=== PATIENT | male | born 1930 | race Caucasian/White ===

== ENCOUNTER 2017-04-30 11:10 | Inpatient (IN) ==
[2017-04-30] MEDS ORDERED: Ipratropium/Albuterol Neb 3 ML IH ONE (11:23)
[2017-04-30] MEDS ORDERED: methylPREDNISolone 125 MG/2 ML VIAL IVP ONE (11:38)
--- NOTE | 2017-04-30 11:42 | Emergency Department Note ---
Disposition Clinical Impression: Shortness of breath Community acquired pneumonia Qualifiers: Laterality: unspecified laterality Qualified Code(s): J18.9 - Pneumonia, unspecified organism Disposition: Admitted As Inpatient Condition: Fair Referrals: José Grace DO [Primary Care Provider] - Forms: ED Satisfaction Letter Time of Disposition: 13:21 General Adult HPI - General Chief complaint: ED Shortness of Breath/Dyspnea Stated complaint: shortness of breath Time Seen by Provider: 04/30/17 11:12 Source: patient Limitations: no limitations Nursing Notes Reviewed: Yes Vital Signs Reviewed: Yes - History of Present Illness HPI Narrative: Patient is an 86-year-old male that presents to emergency department with shortness of breath. He states that his recently had pneumonia and had to be admitted to the hospital this past week. She states that since then he has started not to feel well and become more short of breath with a cough that is productive. Patient states that 2 days ago he was seen in urgent care and was given a Z-[place], a shot, and given an inhaler for her at home. He states that this helped and he was feeling much better but has progressively gotten worse over the weekend. Patient denies any history of COPD or congestive heart failure. Denies any use of home oxygen or any other inhalers. He states that he has been feeling feverish but has not taken his temperature at home. Pain Scale: 0 - Related Data Home Medications Medication Instructions Recorded Confirmed Calcium Polycarbophil [Fibercon] 625 mg PO DAILY 12/08/14 03/22/17 Carvedilol [Coreg] 12.5 mg PO BID 12/08/14 03/22/17 CloNIDine HCl 0.1 mg PO BID 12/08/14 03/22/17 Furosemide [Lasix] 20 mg PO DAILY 12/08/14 03/22/17 Lutein 20 mg PO DAILY 12/08/14 03/22/17 Potassium Chloride 10 meq PO QID 12/08/14 03/22/17 Quinapril HCl [Accupril] 40 mg PO BID 12/08/14 03/22/17 Simvastatin [Zocor] 20 mg PO HS 12/08/14 03/22/17 Vitamin E 100 unit PO DAILY 12/08/14 03/22/17 Warfarin [Coumadin] 3 mg PO 1800 12/08/14 03/22/17 Cholecalciferol (Vitamin D3) 5,000 unit PO DAILY 02/12/15 03/22/17 [Vitamin D] Ascorbate Calcium [Vitamin C] 500 mg PO DAILY 07/14/15 03/22/17 Calcium Crb,Cit/D3/Min34/Luis 1 tab PO DAILY 07/14/15 03/22/17 [Citracal + Bone Density Tablet] amLODIPine [Norvasc] 5 mg PO DAILY 07/14/15 03/22/17 Acetaminophen [Pain Relief] 500 mg PO AD PRN 03/22/17 03/22/17 Allergies Allergy/AdvReac Type Severity Reaction Status Date / Time Sulfa (Sulfonamide Allergy Rash Verified 03/22/17 11:20 Antibiotics) magnesium AdvReac Unknown See Verified 03/22/17 11:20 Comments All systems ED: reviewed and negative except as stated. Constitutional: Reports: fever Respiratory: Reports: cough, dyspnea, sputum production Gastrointestinal: Denies: abdominal pain Musculoskeletal: Reports: neck pain Neurological: Reports: headache Past Medical History - Past Medical History Medical history: Reports: atrial fibrillation, cancer, hypertension Psychiatric history: Reports: no psych history - Social History Smoking Status: Former smoker Smokeless Tobacco Status: No Alcohol use: Reports: occasionally Drug use: Reports: none Physical Exam - General Limitations: no limitations General appearance: alert, anxious - Head Head exam: atraumatic, normocephalic - Eye Eye exam: Present: normal appearance, EOMI - Neck Neck exam: Present: normal inspection, full ROM, trachea midline - Respiratory Respiratory exam: Present: wheezes (Wheezes bilaterally) - Cardiovascular Cardiovascular exam: Present: regular rate, normal rhythm, normal heart sounds, +S1, +S2 - Abdominal Exam Abdominal exam: Present: soft, Non-Tender, normal bowel sounds, other (Patient has a suprapubic catheter in place) - Neurological Exam Neurological exam: Present: alert, oriented X3 - Psychiatric Psychiatric exam: Present: normal affect, normal mood - Skin Skin exam: Present: warm, dry, intact Course Vital Signs Temperature 98.2 F 04/30/17 11:11 Pulse Rate 72 04/30/17 11:11 Respiratory Rate 22 04/30/17 11:11 Blood Pressure 144/66 04/30/17 11:11 O2 Sat by Pulse Oximetry 97 04/30/17 11:11 Temperature 98.2 F 04/30/17 11:11 Pulse Rate 63 04/30/17 12:55 Respiratory Rate 22 04/30/17 12:55 Blood Pressure 144/62 04/30/17 12:55 O2 Sat by Pulse Oximetry 99 04/30/17 12:55 Oxygen Delivery Oxygen Delivery Nasal Cannula Medical Decision Making - MDM Narrative Medical decision making narrative: Due to the patient presents to the emergency department with shortness of breath we have ordered CBC, BMP, BNP, lactate, blood cultures EKG, chest x-ray. We will also give the patient DuoNeb breathing treatments and steroids. The patient's chest x-ray came back for possible pneumonia. The patient will be started on Zosyn and will need to be admitted to the hospital. This is likely community acquired pneumonia due to the patient despite having pneumonia as well. We were not able to treat the patient with Levaquin due to the patient being on warfarin so we chose to treat the patient was Zosyn. We have talked to the hospitalist and they have accepted the patient to their service. The patient will be admitted to the hospital at this time. - Medical Records Medical records reviewed: Yes I reviewed the patient's medical records. - Lab Data Lab results reviewed: Yes I reviewed the patient's lab results. Result diagrams: 04/30/17 12:25 04/30/17 12:25 Lab Results 04/30/17 04/30/17 04/30/17 Range/Units 12:25 12:25 12:25 WBC 9.9 (4.3-11.1) K/mcL RBC 4.20 (4.19-5.50) M/mcL Hgb 12.0 L (12.9-16.9) g/dL Hct 37.2 L (37.5-50.1) % MCV 88.6 (83.0-100.0) fL MCH 28.6 (28.0-33.3) pg MCHC 32.3 (31.6-35.5) g/dL RDW 15.0 H (11.5-14.5) % Plt Count 241 (140-400) K/mcL MPV 9.8 (9.4-12.4) fL Immature Gran % 0.5 (0-4) % Seg Neutrophils % 80.4 % Lymphocytes % 9.1 % Monocytes % 9.8 % Eosinophils % 0.1 % Basophils % 0.1 % Neutrophils # 7.9 (1.6-8.9) K/mcL Lymphocytes # 0.9 (0.6-4.6) K/mcL Monocytes # 1.0 (0.0-1.3) K/mcL Eosinophils # 0.0 (0.0-0.6) K/mcL Basophils # 0.0 (0.0-0.2) K/mcL Sodium 140 (136-145) mEq/L Potassium 4.6 (3.5-5.1) mEq/L Chloride 108 H (98-107) mEq/L Carbon Dioxide 26 (23-29) mEq/L BUN 38 H (8-23) mg/dL Creatinine 1.16 (0.70-1.30) mg/dL Est GFR ( Amer) > 60 (> 60) Est GFR (Non-Af Amer) 59 L (> 60) BUN/Creatinine Ratio 33 H (6-26) Glucose 113 H (70-105) mg/dL Calculated Osmolality 300 (280-300) Lactic Acid 0.6 (0.5-2.2) mmol/L Calcium 9.0 (8.6-10.3) mg/dL Troponin I (< 0.04) ng/mL B-Natriuretic Peptide (Less than 100) pg/mL 04/30/17 04/30/17 Range/Units 12:25 12:25 WBC (4.3-11.1) K/mcL RBC (4.19-5.50) M/mcL Hgb (12.9-16.9) g/dL Hct (37.5-50.1) % MCV (83.0-100.0) fL MCH (28.0-33.3) pg MCHC (31.6-35.5) g/dL RDW (11.5-14.5) % Plt Count (140-400) K/mcL MPV (9.4-12.4) fL Immature Gran % (0-4) % Seg Neutrophils % % Lymphocytes % % Monocytes % % Eosinophils % % Basophils % % Neutrophils # (1.6-8.9) K/mcL Lymphocytes # (0.6-4.6) K/mcL Monocytes # (0.0-1.3) K/mcL Eosinophils # (0.0-0.6) K/mcL Basophils # (0.0-0.2) K/mcL Sodium (136-145) mEq/L Potassium (3.5-5.1) mEq/L Chloride (98-107) mEq/L Carbon Dioxide (23-29) mEq/L BUN (8-23) mg/dL Creatinine (0.70-1.30) mg/dL Est GFR ( Amer) (> 60) Est GFR (Non-Af Amer) (> 60) BUN/Creatinine Ratio (6-26) Glucose (70-105) mg/dL Calculated Osmolality (280-300) Lactic Acid (0.5-2.2) mmol/L Calcium (8.6-10.3) mg/dL Troponin I < 0.03 (< 0.04) ng/mL B-Natriuretic Peptide 317 H (Less than 100) pg/mL - Radiology Data Radiology results reviewed: Yes I reviewed the patient's radiology results. Chest X-Ray 04/30/17 11:26 IMPRESSION: 1. Mild right basilar airspace disease, atelectasis and/or infiltrate. Follow-up recommended to document resolution. 2. Relatively stable elevation of the right hemidiaphragm. 3. Mild left basilar atelectasis. D/ / Adriel Crum MD / Adriel Crum MD Interpreting Provider: Adriel Crum MD - EKG Data EKG #1 EKG attestation: Yes I reviewed and interpreted this EKG. EKG results narrative: EKG showed a ventricular paced rhythm at 69 bpm, QRS duration of 192, QTC of 465. This is compared to previous EKG on 03/05/09
[2017-04-30 12:47] LABS: BUN/Creatinine Ratio 33 (6-26); Blood Urea Nitrogen 38 mg/dL (8-23); Carbon Dioxide 26 mEq/L (23-29); Chloride 108 mEq/L (98-107); Glucose 113 mg/dL (70-105); Osmolality,Calculated 300 (280-300); Potassium 4.6 mEq/L (3.5-5.1); Sodium 140 mEq/L (136-145); eGFR For African Americans > 60 (> 60); eGFR For Non-African Americans 59 (> 60)
[2017-04-30 12:53] LABS: Basophils % 0.1 %; Eosinophils % 0.1 %; Hematocrit 37.2 % (37.5-50.1); Immature Granulocytes % 0.5 % (0-4); Lymphocytes # 0.9 K/mcL (0.6-4.6); Lymphocytes % 9.1 %; Mean Corpuscular HGB Conc 32.3 g/dL (31.6-35.5); Mean Corpuscular Hemoglobin 28.6 pg (28.0-33.3); Mean Corpuscular Volume 88.6 fL (83.0-100.0); Mean Platelet Volume 9.8 fL (9.4-12.4); Monocytes % 9.8 %; Neutrophils # 7.9 K/mcL (1.6-8.9); Platelet Count 241 K/mcL (140-400); Segmented Neutrophils % 80.4 %
[2017-04-30] MEDS ORDERED: Piperacillin/Tazobactam 3.375 GM in Water for inj. (sterile) 20 ML 20 ML IVP ONE (13:15)
--- NOTE | 2017-04-30 13:30 | Emergency Department Note ---
START Narrative - START START: I examined this patient and my medical decision-making was reviewed with the Resident Physician. I agree with the documented findings, disposition and treatment plan as described except to the extent set forth below. 86-year-old male presented with a right-sided pneumonia. Positive sick contacts at home with his . We will admit for Community acquired pneumonia. Start him on Zosyn. He has failed outpatient Zithromax and he's on Warfarin for A fib so will avoid levaquin vss pulm tx's steroids given blood cultures
[2017-04-30] MEDS ORDERED: Albuterol 2.5 MG/3 ML NEBULIZER IH ONE (13:44)
[2017-04-30 13:48] LABS: INR 4.3
[2017-04-30 13:51] LABS: Prothrombin Time 47.9 Seconds (9.4-12.1)
[2017-04-30] MEDS ORDERED: Acetaminophen 325 MG TABLET PO PRN (15:22)
[2017-04-30] MEDS ORDERED: Ondansetron 4 MG/2 ML VIAL IVP PRN (15:22)
[2017-04-30] MEDS ORDERED: Naloxone 0.4 MG/ML INJ IVP PRN (15:22)
[2017-04-30] MEDS ORDERED: *HR* HYDROcodone/Acet 5/325 mg TABLET PO PRN (15:22)
[2017-04-30] MEDS ORDERED: Benzonatate 100 MG CAPSULE PO PRN (15:38)
--- NOTE | 2017-04-30 16:04 | Internal Med History&Physical ---
<John Olvera - Last Filed: 04/30/17 17:04> Date of Encounter: 04/30/17 Time of Encounter: 14:00 Assessment and Plan (1) Pneumonia Status: Acute Acute pneumonia complicated by acute exacerbation of CHF. Pt. reports was recently hospitalized and discharged with pneumonia dx. 1-View CXR today shows Mild right basilar airspace disease, atelectasis, or infiltrate. F/u recommended to document resolution. Relatively stable elevation of right hemidiaphragm. Mild left basilar atelectasis. Pt. reports being dx at Urgent Care on Monday w/bronchitis. WBC is 9.9 on admission and pt. does not currently meet sepsis criteria. Initial lactic acid 0.6. Pt. given IVPB Zosyn in ED. Will continue IVPB Zosyn 3.375 gm Q8 and add vancomycin w/pharmacy dosing for infection coverage. Blood cultures x 2. Sputum culture. Will adjust abx coverage based on culture results. Will use IV fluids judiciously if necessary d /t pts. current CHF exacerbation. Monitor pt. and f/u labs. Pt. discussed w/Dr. Jacinto who is in agreement w/plan of care. Pt. is at high risk for further morbidity, respiratory distress and infection based on current pneumonia, current exacerbation of CHF, immunocompromised status, sx, hx, and risk factors. Inpatient. Qualifiers: Pneumonia type: due to unspecified organism Laterality: right Lung location: lower lobe of lung Qualified Code(s): J18.1 - Lobar pneumonia, unspecified organism (2) Acute exacerbation of CHF (congestive heart failure) Status: Acute Acute exacerbation of CHF complicated by current pneumonia dx. BNP 317 on admission. Pt. reports swelling in legs and feet over the past week. Bilateral LEs mildly edematous on exam w/increase in abdominal girth and weight over past week according to pt. Echocardiogram ordered. Pt. takes PO lasix 40 mg daily as well as Accupril. Will hold PO lasix and administer IVP lasix 40 mg BID. Monitor I&O and daily weight. Daily fluid restriction of 1.5L. Continuous cardiac telemetry. Supplemental O2 w/titration and SpO2 monitoring. DuoNebs Q6 scheduled. Qualifiers: Congestive heart failure type: unspecified congestive heart failure type Qualified Code(s): I50.9 - Heart failure, unspecified (3) Shortness of breath Status: Acute Acute SOB/dyspnea d/t current pneumonia complicated by acute exacerbation of CHF. Supplemental O2 w/titration and SpO2 monitoring. DuoNebs Q6 scheduled. Tessalon 100 mg TID for cough. Falls/safety precautions. IVP lasix 40 mg BID. Monitor I&O and daily weight. Daily fluid restriction of 1.5L. (4) Bilateral leg weakness Status: Acute Acute bilateral leg weakness for the past several weeks. Pt. reports difficulty w/ambulation but denies any falls. Falls/safety precautions. SW consult to assess for post-discharge needs. PT/OT consults to assess for ambulation strength, stability, and safety. (5) Atrial fibrillation Status: Chronic Hx of chronic atrial fibrillation. Pt. is currently anti-coagulated w/Coumadin. Will continue Coumadin w/pharmacy dosing. Continuous cardiac telemetry. Qualifiers: Atrial fibrillation type: chronic Qualified Code(s): I48.2 - Chronic atrial fibrillation (6) HTN (hypertension) Status: Chronic Hx of chronic HTN. Monitor pt. and VS. Continue pts. Norvasc, Coreg, and Accupril. Qualifiers: Hypertension type: essential hypertension Qualified Code(s): I10 - Essential (primary) hypertension (7) HLD (hyperlipidemia) Status: Chronic Hx of chronic HLD. Lipid panel in a.m. labs. Continue pts. Zocor. Qualifiers: Hyperlipidemia type: pure hypercholesterolemia Qualified Code(s): E78.00 - Pure hypercholesterolemia, unspecified; E78.0 - Pure hypercholesterolemia (8) Anemia Status: Chronic Hx of chronic anemia. Pts. Hgb is 12.0 and Hgb is 37.2 on admission which is at or above pts. recent baseline. Monitor pt. for signs of bleeding. H/H in a.m. labs. 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 Pt. states 75 seeds were implanted in 2001 w/ radiation tx. Pt. is followed by Dr. Krishnan and his next appt. is in 2017. (10) DVT prophylaxis Status: Acute Anti-embolic stockings on LEs for DVT prophylaxis d/t current anemia of unknown origin. Internal Medicine - H&P: HPI Chief complaint: SOB/Dyspnea Admitted From: Emergency Dept Plans for Post Hospital Care: Home History of present illness: Mr. Hodgson is a 86 year old male with medical hx of atrial fibrillation, prostate cancer, and HTN presents from the ED with chief complaint of SOB/ dyspnea for the past several days that became worse at 3:30 p.m. yesterday. Pt. reports he could not lay down to sleep because he would become extremely SOB. He also reports being seen at Urgent Care on Monday and being diagnosed with acute bronchitis. Patient also reports cough with sputum production that is yellow in color. She reports history of prostate cancer diagnosed in 2001 with implantation of 75 seeds and 23 radiation treatments. Patient reports mostly cancer recurred in 2013. He currently sees Dr. Krishnan again in June 2017. Patient reports was recently hospitalized with pneumonia. Patient also reports bilateral leg weakness but denies nausea, vomiting, fever, chills, headache, changes in vision, unusual bleeding, chest pain, palpitations, abdominal pain, diarrhea, constipation, numbness, tingling, lightheadedness, dizziness, pre-syncope, or syncope. Past Med Surg Social Fam HX - Past Medical History Source: patient, old records reviewed Medical history: atrial fibrillation, cancer (Prostate cancer in 2001 and 2013) , hypertension Psychiatric history: no psych history - Social History Smoking Status: Former smoker Packs per day: 1 PPD for 20 years - Reports quitting 40 years ago Smokeless Tobacco Status: No Alcohol use: occasionally Drug use: none Current living situation: Home, With Family Activity Level: Independent ambulation Recent Out of Country Travel Within the Last 8 Weeks: No Exposure or Possible Exposure to Illness During Travel: No - Family History Mother Race: Family Member Ethnicity: Non- Living Status: Age at : 79 Cause of : Unknown Hx Family Neurologic Disorders: Yes (Alzheimer's disease) Father Race: Family Member Ethnicity: Non- Living Status: Age at : 69 Cause of : [place] Hx Family Cardiac Disorders: Yes ([place], Afib, HTN, HLD) Brother Race: Family Member Ethnicity: Non- Living Status: Still Living Hx Family HEENT Disorders: Yes (Macular degeneration) Grandfather Race: Family Member Ethnicity: Non- Living Status: Cause of : [place] Hx Family Cardiac Disorders: Yes (GA) Internal Medicine - H&P: Meds Calcium Polycarbophil [Fibercon] 625 mg PO DAILY 12/08/14 [History] Carvedilol [Coreg] 12.5 mg PO BID 12/08/14 [History] Furosemide [Lasix] 20 mg PO DAILY 12/08/14 [History] Lutein 20 mg PO DAILY 12/08/14 [History] Potassium Chloride 10 meq PO QID 12/08/14 [History] Quinapril HCl [Accupril] 40 mg PO BID 12/08/14 [History] Simvastatin [Zocor] 20 mg PO HS 12/08/14 [History] Vitamin E 100 unit PO DAILY 12/08/14 [History] Warfarin [Coumadin] 3 mg PO [id number] 12/08/14 [History] Cholecalciferol (Vitamin D3) [Vitamin D3] 5,000 unit PO DAILY 02/12/15 [History] Ascorbate Calcium [Vitamin C] 500 mg PO DAILY 07/14/15 [History] Calcium Crb,Cit/D3/Min34/Luis [Citracal + Bone Density Tablet] 1 tab PO DAILY 07/14/15 [History] amLODIPine [Norvasc] 5 mg PO BID 07/14/15 [History] Acetaminophen [Pain Relief] 500 mg PO BID PRN 03/22/17 [History] Warfarin [Coumadin] 1.5 mg PO SUTH 04/30/17 [History] levoFLOXacin [Levaquin] 750 mg PO DAILY #5 tablet 05/04/17 [Rx] 3 Allergy/AdvReac Type Severity Reaction Status Date / Time Sulfa (Sulfonamide Allergy Rash Verified 03/22/17 11:20 Antibiotics) magnesium AdvReac Unknown See Verified 03/22/17 11:20 Comments All Systems PM: A 10-system review of systems was performed and is negative for pertinent findings except as documented above in the HPI. - Constitutional Constitutional: weakness (Bilateral legs), no chills, no fever(s), no night sweats - EENT Eyes: no change in vision, no discharge, no pain, no photophobia Ears: no ear discharge, no ear pain, no tinnitus Nose, mouth and throat: no dysphagia, no nasal discharge, no neck pain, no sore throat - Breasts Breasts: as per HPI - Cardiovascular Cardiovascular ROS IM: dyspnea, dyspnea on exertion, edema (Patient reports edema in legs and feet within past week), irregular heart rhythm (Atrial fibrillation), orthopnea, no chest pain, no diaphoresis, no lightheadedness, no palpitations, no syncope - Respiratory Respiratory: as per HPI, cough, dyspnea, dyspnea on exertion, wheezing, change in phlegm color (Yellow) - Gastrointestinal Gastrointestinal: no abdominal pain, no diarrhea, no hematemesis, no hematochezia, no melena, no nausea, no vomiting - Genitourinary Genitourinary ROS male: as per HPI - Musculoskeletal Musculoskeletal ROS IM: no numbness, no tingling - Integumentary Integumentary IM: no rash, no unusual bruising - Neurological Neurological ROS: no confusion, no convulsions, no focal weakness, no numbness, no tingling, no tremor(s) - Psychiatric Psychiatric: as per HPI - Endocrine Endocrine IM: as per HPI - Hematologic/Lymphatic Hematologic/Lymphatic: no easy bruising - Allergic/Immunologic Allergic/Immunologic: as per HPI - Constitutional Vitals: Temp Pulse Resp BP Pulse Ox 98.1 F 67 17 130/56 93 04/30/17 14:32 04/30/17 14:32 04/30/17 14:32 04/30/17 14:32 04/30/17 14:32 General appearance: Present: cooperative, mild distress (Respiratory), A&O X 3, pleasant, obese, answers questions appropriately - Head Head exam: Present: atraumatic, normal inspection, normocephalic - Eye Eye exam: Present: PERRL, conjuntiva pink, sclera anicteric Pupils: Present: PERRL - ENT ENT exam: Present: normal exam, normal external ear exam - Neck Neck exam general surgery: Present: normal inspection, supple, trachea midline. Absent: lymphadenopathy - Respiratory Respiratory exam: Present: accessory muscle use, wheezes (Bilateral inspiratory and expiratory wheezes) - Cardiovascular Cardiovascular exam: Present: irregular rhythm (Atrial fibrillation) - GI/Abdominal GI/Abdominal exam: Present: normal bowel sounds, soft, no peritoneal signs. Absent: distended, tenderness - Rectal Rectal exam: Present: deferred - Additional comments: exam deferred. - Extremities Exam Extremities exam: Present: pedal edema, warm, radial pulses palpable and symmetrical. Absent: calf tenderness, cyanotic - Back Exam Back exam: Present: normal inspection - Neurological Exam Neurological exam: Present: CN II-XII intact, oriented X3, no focal deficits. Absent: pronater drift, facial droop, speech deficit - Psychiatric Psychiatric exam: Present: normal affect, normal mood - Skin Skin exam: Present: dry, intact Internal Med - H&P Results - Labs CBC & Chem 7: 04/30/17 12:25 04/30/17 12:25 - EKG Data Prior EKG available for review: yes EKG comments: 04/30/17 16:21 EKG dated 03/05/09 she was age fibrillation with PVCs or aberrant ventricular conduction, left axis deviation, IV conduction defect, extensive infarct - age undetermined. EKG dated 04/30/17 shows electronic ventricular pacemaker, abnormal rhythm ECG. - Diagnostic Studies Chest x-ray Additional comments: Impressions Chest X-Ray 04/30/17 11:26 IMPRESSION: 1. Mild right basilar airspace disease, atelectasis and/or infiltrate. Follow-up recommended to document resolution. 2. Relatively stable elevation of the right hemidiaphragm. 3. Mild left basilar atelectasis. D/ / Adriel Crum MD / Adriel Crum MD Interpreting Provider: Adriel Crum MD <Ashley Jacinto Minna - Last Filed: 06/02/17 09:43> Date of Encounter: 06/02/17 Internal Medicine - H&P: HPI History of present illness: Mr. Hodgson is a 86 year old male All Systems PM: A 10-system review of systems was performed and is negative for pertinent findings except as documented above in the HPI. - Constitutional Vitals: Temp Pulse Resp BP Pulse Ox 98.7 F 65 16 131/72 95 05/04/17 11:23 05/04/17 11:23 05/04/17 11:23 05/04/17 11:23 05/04/17 11:23 Internal Med - H&P Results - Labs CBC & Chem 7: 05/04/17 05:22 05/04/17 05:22 - Impressions ITS Impressions Echocardiogram 12/25/17 08:30 Impressions: LVEF 60-65%. Severely dilated left atrium. Severely dilated right atrium. Moderately dilated right ventricle with normal function Moderate pulmonary hypertension. PFO is present Indeterminate diastolic function. Left Ventricular Wall Motion: Rest Echo Findings All wall segments showed normal motion. Findings: Study Quality * Technically adequate exam. Aorta * Normally sized aortic root. Pericardium * The pericardium appears normal. Left Atrium * Severely dilated left atrium. Mitral Valve * No mitral stenosis. * Mildly calcified mitral valve leaflets. * Trace mitral regurgitation. Aortic Valve * Normal aortic valve structure. * No aortic stenosis. * Mild aortic regurgitation. Device lead * A device lead was visualized in the right atrium and right ventricle. Right Atrium * Severely dilated right atrium. Pulmonic Valve * No pulmonic regurgitation. * No pulmonic stenosis. * Pulmonic valve is not well visualized. Left Ventricle * LVEF 60-65%. * Indeterminate diastolic function. Right Ventricle * Moderately dilated right ventricle with normal function ECG Findings * Atrial fibrillation. Tricuspid Valve * Estimated RVSP is 44 mmHg. * No tricuspid stenosis. * Mild tricuspid regurgitation. * Moderate pulmonary hypertension. Interatrial Septum * PFO is present IVC * The IVC is dilated. * < 50% respiratory change. - Attending Attestation I personally and independently interviewed and examined the patient with INSPECTOR [employer], and I reviewed the patient's medical record with her. I am in agreement with the assessment and proposed treatment plan. I discussed my findings and recommendation with the patient and answer all questions. The patient's medical records were edited to accurately reflect this encounter.
[2017-04-30] MEDS: Vancomycin 1,250 MG in D5% in Water 250 ML IVPB SCH (16:54)
[2017-04-30] MEDS: Piperacillin/Tazobactam 3.375 GM/200 ML BAG IVPB SCH (16:55)
[2017-04-30] MEDS: Ipratropium/Albuterol Neb 3 ML IH SCH ×2 (17:50→22:29)
[2017-04-30] MEDS ORDERED: Warfarin perPT PO PRN (18:00)
[2017-04-30 18:49] LABS: Adenovirus Not Detected (Not Detect); Bordetella Pertussis Not Detected (Not Detect); Chlamydophila pneumoniae Not Detected (Not Detect); Coronavirus 229E Not Detected (Not Detect); Coronavirus HKU1 Not Detected (Not Detect); Coronavirus NL63 Not Detected (Not Detect); Coronavirus OC43 Not Detected (Not Detect); Human Metapneumovirus Not Detected (Not Detect); Human Rhinovirus/Enterovirus Not Detected (Not Detect); Influenza A Subtype 2009 H1 Not Detected (Not Detect); Influenza A Untypeable Not Detected (Not Detect); Influenza B Not Detected (Not Detect); Mycoplasma pneumoniae Not Detected (Not Detect); Parainfluenza Virus 1 Not Detected (Not Detect); Parainfluenza Virus 2 Not Detected (Not Detect); Parainfluenza Virus 3 Not Detected (Not Detect); Parainfluenza Virus 4 Not Detected (Not Detect); Respiratory Syncytial Virus ***DETECTED*** (Not Detect)
[2017-04-30] MEDS: amLODIPine 5 MG TABLET PO SCH (20:02)
[2017-04-30] MEDS: Lisinopril 20 MG TABLET PO SCH (20:07)
[2017-04-30] MEDS: Furosemide 40 MG/4 ML VIAL IVP SCH (20:08)
[2017-05-01] MEDS: Piperacillin/Tazobactam 3.375 GM/200 ML BAG IVPB SCH ×3 (01:36→18:10)
[2017-05-01] MEDS: Ipratropium/Albuterol Neb 3 ML IH SCH ×4 (03:57→22:52)
[2017-05-01 03:59] LABS: Basophils % 0.2 %; Hematocrit 33.9 % (37.5-50.1); Hemoglobin 11.1 g/dL (12.9-16.9); Immature Granulocytes % 0.5 % (0-4); Lymphocytes # 0.4 K/mcL (0.6-4.6); Lymphocytes % 6.5 %; Mean Corpuscular HGB Conc 32.7 g/dL (31.6-35.5); Mean Corpuscular Hemoglobin 28.2 pg (28.0-33.3); Mean Corpuscular Volume 86.3 fL (83.0-100.0); Mean Platelet Volume 10.1 fL (9.4-12.4); Monocytes # 0.2 K/mcL (0.0-1.3); Monocytes % 2.8 %; Neutrophils # 5.1 K/mcL (1.6-8.9); Platelet Count 218 K/mcL (140-400); Red Blood Count 3.93 M/mcL (4.19-5.50); Red Cell Distribution Width 14.8 % (11.5-14.5)
[2017-05-01 04:04] LABS: Hemoglobin A1C 5.4 %
[2017-05-01 04:05] LABS: INR 5.1; Prothrombin Time 56.5 Seconds (9.4-12.1)
[2017-05-01 04:20] LABS: Albumin 3.9 g/dL (3.5-5.7); Albumin/Globulin Ratio 1.5 (1.1-2.2); Bilirubin,Total 0.5 mg/dL (0.3-1.0); Calcium 8.5 mg/dL (8.6-10.3); Globulin 2.6 g/dL (2.4-3.5); Magnesium 2.1 mg/dL (1.6-2.6); Potassium 3.6 mEq/L (3.5-5.1); Total Protein 6.5 g/dL (6.4-8.9)
[2017-05-01] MEDS ORDERED: Nitroglycerin 0.4 MG TAB.SUBL SL PRN (05:30)
[2017-05-01] MEDS: (Vitamin E [Vitamin E] 100 UNIT) PO SCH (08:50)
[2017-05-01] MEDS: (Lutein [Lutein] 20 MG) PO SCH (08:50)
[2017-05-01] MEDS: Furosemide 40 MG/4 ML VIAL IVP SCH ×2 (09:26→20:02)
[2017-05-01] MEDS: Cholecalciferol (D-3) 1,000 UNIT TABLET PO SCH (09:27)
[2017-05-01] MEDS: Lisinopril 20 MG TABLET PO SCH ×2 (09:27→20:04)
[2017-05-01] MEDS: amLODIPine 5 MG TABLET PO SCH ×2 (09:28→20:05)
[2017-05-01] MEDS: Ascorbic Acid 500 MG TABLET PO SCH (09:28)
[2017-05-01] MEDS: Vancomycin 1,250 MG in D5% in Water 250 ML IVPB SCH (15:41)
--- NOTE | 2017-05-01 16:01 | Internal Med Progress Note ---
Date of Encounter: 05/01/17 Time of Encounter: 16:00 - Assessment and plan (1) Pneumonia Current Visit: No Status: Acute Assessment and plan: 86/male Was evaluated in the urgent care and was diagnosed as a bronchitis Admitted with pneumonia and was started on vancomycin along with Zosyn. Today is a day 2 of antibiotics. Blood culture negative so far. Sputum culture was discarded due to the inappropriate sample. Plan: We will continue vancomycin/Zosyn for next 1 day. If tomorrow blood culture negative then discontinue vancomycin. May switch to antibiotics by by mouth route in next 1-2 days Qualifiers: Pneumonia type: due to unspecified organism Laterality: right Lung location: lower lobe of lung Qualified Code(s): J18.1 - Lobar pneumonia, unspecified organism (2) Subtherapeutic anticoagulation Current Visit: Yes Status: Acute Assessment and plan: Presently INR is 5.6. Indication for anticoagulation: Atrial fibrillation. Plan: We will hold the Coumadin for now. We will monitor for signs of bleeding. (3) Prostate cancer metastatic to bone Current Visit: No Status: Chronic Assessment and plan: Patient has a metastatic prostate cancer to the bone. At this point there is no bone pain or signs of hypercalcemia (4) Atrial fibrillation Current Visit: No Status: Chronic Assessment and plan: Chronic atrial fibrillation/presently not in rapid ventricular rate. Qualifiers: Atrial fibrillation type: chronic Qualified Code(s): I48.2 - Chronic atrial fibrillation (5) HTN (hypertension) Current Visit: No Status: Chronic Assessment and plan: The patient is within acceptable range Qualifiers: Hypertension type: essential hypertension Qualified Code(s): I10 - Essential (primary) hypertension (6) HLD (hyperlipidemia) Current Visit: No Status: Chronic Assessment and plan: Stable Qualifiers: Hyperlipidemia type: pure hypercholesterolemia Qualified Code(s): E78.00 - Pure hypercholesterolemia, unspecified; E78.0 - Pure hypercholesterolemia (7) DVT prophylaxis Current Visit: No Status: Acute Assessment and plan: INR is 5.6 Coumadin on hold - Subjective Interval history: Patient seen and examined. Chart reviewed. Patient is comfortably lying in the bed. Patient still has occasional shortness of breath/he is using his accessory muscles of respiration. - Constitutional Vitals: Temp Pulse Resp BP Pulse Ox 99.2 F 65 20 125/54 94 05/01/17 14:55 05/01/17 14:55 05/01/17 15:46 05/01/17 14:55 05/01/17 15:46 General appearance: Present: cooperative, mild distress (Respiratory), A&O X 3, pleasant, obese, answers questions appropriately - Head Head exam: Present: atraumatic, normocephalic - Eye Eye exam: Present: PERRL, conjuntiva pink, sclera anicteric Pupils: Present: PERRL - Neck Neck exam general surgery: Present: supple, trachea midline. Absent: lymphadenopathy - Respiratory Respiratory exam: Present: CTAB, rhonchi, wheezes. Absent: accessory muscle use , rales - Cardiovascular Cardiovascular exam: Present: RRR, +S1, +S2. Absent: diastolic murmur, gallop, rubs, systolic murmur - GI/Abdominal GI/Abdominal exam: Present: normal bowel sounds, soft, no peritoneal signs. Absent: distended, tenderness - Extremities Exam Extremities exam: Present: warm, radial pulses palpable and symmetrical. Absent : calf tenderness, cyanotic, pedal edema - Neurological Exam Neurological exam: Present: CN II-XII intact, oriented X3, no focal deficits. Absent: pronater drift, facial droop, speech deficit - Skin Skin exam: Present: dry, intact Internal Medicine: Result - Labs CBC & Chem 7: 05/01/17 03:07 05/01/17 03:07 Labs: Short CBC 05/01/17 Range/Units 03:07 WBC 5.7 (4.3-11.1) K/mcL Hgb 11.1 L (12.9-16.9) g/dL Hct 33.9 L (37.5-50.1) % Plt Count 218 (140-400) K/mcL Neutrophils # 5.1 (1.6-8.9) K/mcL BMP 05/01/17 03:07 Sodium 140 Potassium 3.6 Chloride 105 Carbon Dioxide 26 BUN 36 H Creatinine 1.36 H Glucose 124 H Calcium 8.5 L Liver Function 05/01/17 Range/Units 03:07 Total Bilirubin 0.5 (0.3-1.0) mg/dL AST 27 (13-39) Units/L ALT 22 (7-52) Units/L Alkaline Phosphatase 51 (34-104) Units/L Albumin 3.9 (3.5-5.7) g/dL - ABG Interpretation ABG results: PT/INR, D-dimer PT 56.5 Seconds (9.4-12.1) H* 05/01/17 03:07 - VTE Documentation of Mechanical Device: Graduated compression elastic hosiery Consult Discharge Plan - Plan Referrals: José Grace DO [Primary Care Provider] -
[2017-05-02] MEDS: Piperacillin/Tazobactam 3.375 GM/200 ML BAG IVPB SCH ×3 (01:45→16:50)
[2017-05-02] MEDS: Ipratropium/Albuterol Neb 3 ML IH SCH ×4 (04:17→21:47)
[2017-05-02 04:58] LABS: Hematocrit 35.2 % (37.5-50.1); Hemoglobin 11.4 g/dL (12.9-16.9); Immature Granulocytes % 0.5 % (0-4); Lymphocytes # 0.7 K/mcL (0.6-4.6); Lymphocytes % 12.1 %; Mean Corpuscular HGB Conc 32.4 g/dL (31.6-35.5); Mean Corpuscular Hemoglobin 27.9 pg (28.0-33.3); Mean Corpuscular Volume 86.3 fL (83.0-100.0); Mean Platelet Volume 10.1 fL (9.4-12.4); Monocytes # 0.6 K/mcL (0.0-1.3); Neutrophils # 4.4 K/mcL (1.6-8.9); Platelet Count 210 K/mcL (140-400); Red Blood Count 4.08 M/mcL (4.19-5.50); Red Cell Distribution Width 14.6 % (11.5-14.5); Segmented Neutrophils % 76.4 %
[2017-05-02 05:09] LABS: INR 3.2; Prothrombin Time 35.1 Seconds (9.4-12.1)
[2017-05-02 05:17] LABS: Alanine Aminotransferase 20 Units/L (7-52); Albumin 3.4 g/dL (3.5-5.7); Albumin/Globulin Ratio 1.4 (1.1-2.2); Alkaline Phosphatase 39 Units/L (34-104); Aspartate Amino Transferase 24 Units/L (13-39); BUN/Creatinine Ratio 26 (6-26); Bilirubin,Total 0.5 mg/dL (0.3-1.0); Blood Urea Nitrogen 33 mg/dL (8-23); Calcium 8.2 mg/dL (8.6-10.3); Carbon Dioxide 33 mEq/L (23-29); Chloride 102 mEq/L (98-107); Globulin 2.5 g/dL (2.4-3.5); Glucose 103 mg/dL (70-105); Osmolality,Calculated 302 (280-300); Sodium 142 mEq/L (136-145); Total Protein 5.9 g/dL (6.4-8.9); eGFR For African Americans > 60 (> 60); eGFR For Non-African Americans 53 (> 60)
[2017-05-02] MEDS: (Lutein [Lutein] 20 MG) PO SCH (08:18)
[2017-05-02] MEDS: (Vitamin E [Vitamin E] 100 UNIT) PO SCH (08:19)
[2017-05-02] MEDS: Furosemide 40 MG/4 ML VIAL IVP SCH ×2 (08:22→21:29)
[2017-05-02] MEDS: amLODIPine 5 MG TABLET PO SCH ×2 (08:23→21:29)
[2017-05-02] MEDS: Cholecalciferol (D-3) 1,000 UNIT TABLET PO SCH (08:23)
[2017-05-02] MEDS: Ascorbic Acid 500 MG TABLET PO SCH (08:23)
[2017-05-02] MEDS: Lisinopril 20 MG TABLET PO SCH ×2 (08:23→21:28)
[2017-05-02] MEDS ORDERED: Aminoglycoside Consult 1 EACH MC ONE (10:24)
--- NOTE | 2017-05-02 14:09 | Internal Med Progress Note ---
Date of Encounter: 05/02/17 Time of Encounter: 14:05 - Assessment and plan (1) Pneumonia Current Visit: No Status: Acute Assessment and plan: 86/male was admitted for SOB, CXR showed pneumonia, he was placed on vancomycin and zosyn blood culture negative, will discontinue vancomycin. May switch to antibiotics by by mouth route in next 1-2 days Qualifiers: Pneumonia type: due to unspecified organism Laterality: right Lung location: lower lobe of lung Qualified Code(s): J18.1 - Lobar pneumonia, unspecified organism (2) Acute exacerbation of CHF (congestive heart failure) Current Visit: No Status: Acute Assessment and plan: Echocardiogram showed LVEF 60-65%, severely dilated left atrium severely dilated right atrium. Moderate to severe the right ventricular with normal function PFO present. Shortness improved and was IV Lasix. Continue IV Lasix. Qualifiers: Congestive heart failure type: diastolic Qualified Code(s): I50.33 - Acute on chronic diastolic (congestive) heart failure (3) Prostate cancer metastatic to bone Current Visit: No Status: Chronic Assessment and plan: Patient has a metastatic prostate cancer to the bone. At this point there is no bone pain or signs of hypercalcemia (4) Atrial fibrillation Current Visit: No Status: Chronic Assessment and plan: Chronic atrial fibrillation/presently not in rapid ventricular rate. Was on Coumadin at home, INR was elevated continue to hold his Coumadin Qualifiers: Atrial fibrillation type: permanent Qualified Code(s): I48.2 - Chronic atrial fibrillation (5) HTN (hypertension) Current Visit: No Status: Chronic Assessment and plan: The patient is within acceptable range Qualifiers: Hypertension type: essential hypertension Qualified Code(s): I10 - Essential (primary) hypertension (6) HLD (hyperlipidemia) Current Visit: No Status: Chronic Assessment and plan: Stable Qualifiers: Hyperlipidemia type: pure hypercholesterolemia Qualified Code(s): E78.00 - Pure hypercholesterolemia, unspecified; E78.0 - Pure hypercholesterolemia - Time Spent With Patient 25 - 35 minutes - Subjective Interval history: 86/male has history of prostate cancer, atrial fibrillation, hypertension, and CHF he was admitted for pneumonia and a CHF exacerbation on April 30 . Patient was placed IV vancomycin and Zosyn. Febrile on room air. will d/c IV vancomycin - Constitutional Vitals: Temp Pulse Resp BP Pulse Ox 98.0 F 61 16 127/64 95 05/02/17 06:48 05/02/17 06:48 05/02/17 10:47 05/02/17 06:48 05/02/17 10:47 General appearance: Present: cooperative, mild distress (Respiratory), A&O X 3, pleasant, obese, answers questions appropriately Exam: CONSTITUTIONAL: patient appears as an age appropriate male in no acute distress. EYES Clear sclerae, bilateral pupils are equal, reactive to light. EMOI. RESPIRATORY: No accessory muscle use, bilateral rhonchi crackles/rales. CARDIOVASCULAR: Regular heart rate, normal S1 and S2, no murmurs GASTROINTESTINAL: bowel sounds present, soft, no tenderness. MUSCULOSKELETAL: Joints in normal range of motion, no clubbing, no edema, no cyanosis. Bilateral peripheral pulses 2+. NEUROLOGIC: CN II to XII are grossly intact, no focal neurological deficit. Internal Medicine: Result - Labs CBC & Chem 7: 05/02/17 04:23 05/02/17 04:23 Labs: Short CBC 05/02/17 Range/Units 04:23 WBC 5.7 (4.3-11.1) K/mcL Hgb 11.4 L (12.9-16.9) g/dL Hct 35.2 L (37.5-50.1) % Plt Count 210 (140-400) K/mcL Neutrophils # 4.4 (1.6-8.9) K/mcL BMP 05/02/17 04:23 Sodium 142 Potassium 3.0 L Chloride 102 Carbon Dioxide 33 H BUN 33 H Creatinine 1.28 Glucose 103 Calcium 8.2 L Liver Function 05/02/17 Range/Units 04:23 Total Bilirubin 0.5 (0.3-1.0) mg/dL AST 24 (13-39) Units/L ALT 20 (7-52) Units/L Alkaline Phosphatase 39 (34-104) Units/L Albumin 3.4 L (3.5-5.7) g/dL - ABG Interpretation ABG results: PT/INR, D-dimer PT 35.1 Seconds (9.4-12.1) H 05/02/17 04:23 - Impressions Impressions Echocardiogram 05/01/17 08:30 Impressions: LVEF 60-65%. Severely dilated left atrium. Severely dilated right atrium. Moderately dilated right ventricle with normal function Moderate pulmonary hypertension. PFO is present Indeterminate diastolic function. Left Ventricular Wall Motion: Rest Echo Findings All wall segments showed normal motion. Findings: Study Quality * Technically adequate exam. Aorta * Normally sized aortic root. Pericardium * The pericardium appears normal. Left Atrium * Severely dilated left atrium. Mitral Valve * No mitral stenosis. * Mildly calcified mitral valve leaflets. * Trace mitral regurgitation. Aortic Valve * Normal aortic valve structure. * No aortic stenosis. * Mild aortic regurgitation. Device lead * A device lead was visualized in the right atrium and right ventricle. Right Atrium * Severely dilated right atrium. Pulmonic Valve * No pulmonic regurgitation. * No pulmonic stenosis. * Pulmonic valve is not well visualized. Left Ventricle * LVEF 60-65%. * Indeterminate diastolic function. Right Ventricle * Moderately dilated right ventricle with normal function ECG Findings * Atrial fibrillation. Tricuspid Valve * Estimated RVSP is 44 mmHg. * No tricuspid stenosis. * Mild tricuspid regurgitation. * Moderate pulmonary hypertension. Interatrial Septum * PFO is present IVC * The IVC is dilated. * < 50% respiratory change. - VTE Documentation of Mechanical Device: Graduated compression elastic hosiery Consult Discharge Plan - Plan Referrals: José Grace DO [Primary Care Provider] -
[2017-05-02] MEDS: Potassium Chloride Elixir 20 MEQ/15 ML UDC PO SCH (14:52)
--- NOTE | 2017-05-02 16:42 | Electrocardiograph Report ---
[address] [address] Test Date: 2017-04-30 Pat Name: Miguel Hodgson Department: 104 Room: 3B Gender: M [employer] Operator: : [id number] Requested By: Remington Acosta Order Number: [id number] Reading MD: Don Mccoy MD Measurements Intervals [place] Rate: 69 P: TN: 0 QRS: -77 QRSD: 192 T: 99 QT: 446 QTc: 465 Interpretive Statements [employer]LECT[employer]EN[employer]IC[employer] PACEMAKER Electronically Signed On 05-02-2017 16:40:50 EST by Don Mccoy MD
[2017-05-03] MEDS: Piperacillin/Tazobactam 3.375 GM/200 ML BAG IVPB SCH ×3 (02:48→16:04)
[2017-05-03] MEDS: Ipratropium/Albuterol Neb 3 ML IH SCH ×4 (03:44→22:38)
[2017-05-03 04:13] LABS: Basophils % 0.3 %; Eosinophils % 0.7 %; Hematocrit 38.5 % (37.5-50.1); Hemoglobin 12.8 g/dL (12.9-16.9); INR 1.9; Immature Granulocytes % 0.7 % (0-4); Lymphocytes # 1.5 K/mcL (0.6-4.6); Lymphocytes % 25.1 %; Mean Corpuscular HGB Conc 33.2 g/dL (31.6-35.5); Mean Corpuscular Hemoglobin 28.4 pg (28.0-33.3); Mean Corpuscular Volume 85.4 fL (83.0-100.0); Mean Platelet Volume 9.8 fL (9.4-12.4); Monocytes # 0.6 K/mcL (0.0-1.3); Monocytes % 10.8 %; Neutrophils # 3.7 K/mcL (1.6-8.9); Platelet Count 205 K/mcL (140-400); Red Blood Count 4.51 M/mcL (4.19-5.50); Red Cell Distribution Width 14.8 % (11.5-14.5); Segmented Neutrophils % 62.4 %
[2017-05-03 04:33] LABS: Albumin 3.4 g/dL (3.5-5.7); Albumin/Globulin Ratio 1.2 (1.1-2.2); Bilirubin,Total 0.7 mg/dL (0.3-1.0); Calcium 8.5 mg/dL (8.6-10.3); Globulin 2.8 g/dL (2.4-3.5); Potassium 3.4 mEq/L (3.5-5.1); Total Protein 6.2 g/dL (6.4-8.9)
[2017-05-03] MEDS: (Vitamin E [Vitamin E] 100 UNIT) PO SCH (08:39)
[2017-05-03] MEDS: (Lutein [Lutein] 20 MG) PO SCH (08:39)
[2017-05-03] MEDS: Ascorbic Acid 500 MG TABLET PO SCH (08:42)
[2017-05-03] MEDS: Cholecalciferol (D-3) 1,000 UNIT TABLET PO SCH (08:42)
[2017-05-03] MEDS: Lisinopril 20 MG TABLET PO SCH ×2 (08:42→21:27)
[2017-05-03] MEDS: amLODIPine 5 MG TABLET PO SCH ×2 (08:42→21:27)
[2017-05-03] MEDS: Furosemide 40 MG/4 ML VIAL IVP SCH (08:42)
[2017-05-03] MEDS: Potassium Chloride Elixir 20 MEQ/15 ML UDC PO SCH (11:24)
--- NOTE | 2017-05-03 17:14 | Internal Med Progress Note ---
Date of Encounter: 05/03/17 Time of Encounter: 10:00 - Assessment and plan (1) Chronic suprapubic catheter Current Visit: Yes Status: Acute Assessment and plan: I discussed the case with urology. The patient was supposed to have his catheter replaced in 5 days. He will have a catheter replaced today. (2) Prostate cancer metastatic to bone Current Visit: No Status: Chronic Assessment and plan: Patient has a metastatic prostate cancer to the bone. At this point there is no bone pain or signs of hypercalcemia. Outpatient follow-up with oncology. (3) Pneumonia Current Visit: No Status: Acute Assessment and plan: 86/male was admitted for SOB, CXR showed pneumonia, he was placed on vancomycin and zosyn blood culture negative, we will continue with Zosyn only. Follow-up blood cultures. Sputum culture. Plan to switch to oral antibiotics in one day. RSV swab negative which was likely trigger for bacterial pneumonia. Qualifiers: Pneumonia type: due to unspecified organism Laterality: right Lung location: lower lobe of lung Qualified Code(s): J18.1 - Lobar pneumonia, unspecified organism (4) Atrial fibrillation Current Visit: No Status: Chronic Assessment and plan: Chronic atrial fibrillation/presently not in rapid ventricular rate. Resume Coumadin, dose per daily INR. INR today is 1.9. Qualifiers: Atrial fibrillation type: permanent Qualified Code(s): I48.2 - Chronic atrial fibrillation (5) HTN (hypertension) Current Visit: No Status: Chronic Assessment and plan: The patient is within acceptable range Qualifiers: Hypertension type: essential hypertension Qualified Code(s): I10 - Essential (primary) hypertension (6) Acute exacerbation of CHF (congestive heart failure) Current Visit: No Status: Acute Assessment and plan: Echocardiogram showed LVEF 60-65%, severely dilated left atrium severely dilated right atrium. Moderate to severe the right ventricular with normal function PFO present. Shortness improved while on IV Lasix 40 mg twice a day. Patient is close to euvolemia. We will switch to Lasix 20 mg oral twice a day. Qualifiers: Congestive heart failure type: diastolic Qualified Code(s): I50.33 - Acute on chronic diastolic (congestive) heart failure - Subjective Interval history: Patient reports improvement and shortness of breath over the last 2 days. He denies associated fever. He is breathing is back to baseline. He has a dry cough also improved. He states that he tried to ambulate with PT but has felt extremely weak and could not walk nearly as far as he used to prior to this hospitalization. - Constitutional Vitals: Temp Pulse Resp BP Pulse Ox 97.8 F 62 18 101/60 92 05/03/17 15:21 05/03/17 15:21 05/03/17 15:44 05/03/17 15:21 05/03/17 15:44 General appearance: Present: cooperative, mild distress (Respiratory), A&O X 3, pleasant, obese, answers questions appropriately - Eye Eye exam: Present: PERRL, conjuntiva pink, sclera anicteric Pupils: Present: PERRL - Neck Neck exam general surgery: Present: supple, trachea midline. Absent: lymphadenopathy - Respiratory Respiratory exam: Present: CTAB. Absent: accessory muscle use, rales, rhonchi, wheezes - Cardiovascular Cardiovascular exam: Present: RRR, +S1, +S2. Absent: diastolic murmur, gallop, rubs, systolic murmur - GI/Abdominal GI/Abdominal exam: Present: normal bowel sounds, soft, no peritoneal signs. Absent: distended, tenderness - Additional comments: Suprapubic catheter present in place with insertion site clean with no drainage , no erythema. - Neurological Exam Neurological exam: Present: CN II-XII intact, oriented X3, no focal deficits. Absent: pronater drift, facial droop, speech deficit - Skin Skin exam: Present: dry, intact Internal Medicine: Result - Labs CBC & Chem 7: 05/03/17 03:49 05/03/17 03:49 Labs: Short CBC 05/03/17 Range/Units 03:49 WBC 5.9 (4.3-11.1) K/mcL Hgb 12.8 L (12.9-16.9) g/dL Hct 38.5 (37.5-50.1) % Plt Count 205 (140-400) K/mcL Neutrophils # 3.7 (1.6-8.9) K/mcL BMP 05/03/17 03:49 Sodium 142 Potassium 3.4 L Chloride 101 Carbon Dioxide 34 H BUN 35 H Creatinine 1.36 H Glucose 97 Calcium 8.5 L Liver Function 05/03/17 Range/Units 03:49 Total Bilirubin 0.7 (0.3-1.0) mg/dL AST 27 (13-39) Units/L ALT 24 (7-52) Units/L Alkaline Phosphatase 49 (34-104) Units/L Albumin 3.4 L (3.5-5.7) g/dL - ABG Interpretation ABG results: PT/INR, D-dimer PT 21.0 Seconds (9.4-12.1) H 05/03/17 03:49 - VTE Documentation of Mechanical Device: Graduated compression elastic hosiery Consult Discharge Plan - Plan Referrals: José Grace DO [Primary Care Provider] -
[2017-05-03] MEDS ORDERED: *HR* Warfarin 3 MG TABLET PO ONE (18:00)
--- NOTE | 2017-05-03 19:56 | Urology Procedure Note ---
Date of Encounter: 05/03/17 Time of Encounter: 17:00 Procedures:Urology - Suprapubic Catheter Replacement Consent obtained: verbal consent Reason for Suprapubic Catheter: needs changed Prophylactic Antibiotics Given: No Skin cleansed in sterile fashion: Yes Amount of Urine Returned: 10 Urine Appearance: Clear Additional comments: 16 israeli SPT removed. 18 israeli cath reinserted without complication.
[2017-05-04] MEDS: Piperacillin/Tazobactam 3.375 GM/200 ML BAG IVPB SCH ×2 (02:16→10:42)
[2017-05-04] MEDS: Ipratropium/Albuterol Neb 3 ML IH SCH ×2 (04:18→10:39)
[2017-05-04 06:16] LABS: Basophils % 0.3 %; Eosinophils # 0.1 K/mcL (0.0-0.6); Eosinophils % 1.6 %; Hematocrit 38.7 % (37.5-50.1); Hemoglobin 12.7 g/dL (12.9-16.9); Immature Granulocytes % 0.6 % (0-4); Lymphocytes % 29.1 %; Mean Corpuscular HGB Conc 32.8 g/dL (31.6-35.5); Mean Corpuscular Hemoglobin 28.1 pg (28.0-33.3); Mean Corpuscular Volume 85.6 fL (83.0-100.0); Mean Platelet Volume 10.1 fL (9.4-12.4); Monocytes # 0.6 K/mcL (0.0-1.3); Platelet Count 214 K/mcL (140-400); Red Blood Count 4.52 M/mcL (4.19-5.50); Red Cell Distribution Width 14.7 % (11.5-14.5); Segmented Neutrophils % 59.4 %
[2017-05-04 06:19] LABS: INR 1.6; Prothrombin Time 17.9 Seconds (9.4-12.1)
[2017-05-04 06:28] LABS: Albumin 3.4 g/dL (3.5-5.7); Albumin/Globulin Ratio 1.4 (1.1-2.2); Bilirubin,Total 0.6 mg/dL (0.3-1.0); Calcium 8.6 mg/dL (8.6-10.3); Globulin 2.5 g/dL (2.4-3.5); Potassium 3.7 mEq/L (3.5-5.1); Total Protein 5.9 g/dL (6.4-8.9)
[2017-05-04 07:44] LABS: Platelet Estimate Normal (Normal); Reactive Lymphocytes Present (Not Present)
[2017-05-04] MEDS ORDERED: Furosemide 20 MG TABLET PO SCH (08:00)
[2017-05-04] MEDS: (Vitamin E [Vitamin E] 100 UNIT) PO SCH (08:02)
[2017-05-04] MEDS: (Lutein [Lutein] 20 MG) PO SCH (08:02)
[2017-05-04] MEDS: amLODIPine 5 MG TABLET PO SCH (08:10)
[2017-05-04] MEDS: Lisinopril 20 MG TABLET PO SCH (08:11)
[2017-05-04] MEDS: Cholecalciferol (D-3) 1,000 UNIT TABLET PO SCH (08:11)
[2017-05-04] MEDS: Ascorbic Acid 500 MG TABLET PO SCH (08:11)
[2017-05-04 11:24] VITALS: BP 131/72
--- NOTE | 2017-05-04 11:36 | Discharge Summary ---
<Suad Berman - Last Filed: 05/04/17 11:40> Date of Encounter: 05/04/17 Time of Encounter: 11:38 - Discharge Diagnosis (1) Pneumonia Priority: Primary Status: Acute Qualifiers: Pneumonia type: due to unspecified organism Laterality: right Lung location: lower lobe of lung Qualified Code(s): J18.1 - Lobar pneumonia, unspecified organism (2) Acute exacerbation of CHF (congestive heart failure) Priority: Primary Status: Acute Qualifiers: Congestive heart failure type: diastolic Qualified Code(s): I50.33 - Acute on chronic diastolic (congestive) heart failure (3) Chronic suprapubic catheter Priority: Secondary Status: Acute (4) Atrial fibrillation Priority: Secondary Status: Chronic Qualifiers: Atrial fibrillation type: permanent Qualified Code(s): I48.2 - Chronic atrial fibrillation (5) HTN (hypertension) Priority: Secondary Status: Chronic Qualifiers: Hypertension type: essential hypertension Qualified Code(s): I10 - Essential (primary) hypertension (6) Prostate cancer metastatic to bone Priority: Secondary Status: Chronic - Discharge Medications Prescriptions: levoFLOXacin [Levaquin] 750 mg PO DAILY #5 tablet Home Medications: Calcium Polycarbophil [Fibercon] 625 mg PO DAILY 12/08/14 [History] Carvedilol [Coreg] 12.5 mg PO BID 12/08/14 [History] Furosemide [Lasix] 20 mg PO DAILY 12/08/14 [History] Lutein 20 mg PO DAILY 12/08/14 [History] Potassium Chloride 10 meq PO QID 12/08/14 [History] Quinapril HCl [Accupril] 40 mg PO BID 12/08/14 [History] Simvastatin [Zocor] 20 mg PO HS 12/08/14 [History] Vitamin E 100 unit PO DAILY 12/08/14 [History] Warfarin [Coumadin] 3 mg PO [id number] 12/08/14 [History] Cholecalciferol (Vitamin D3) [Vitamin D3] 5,000 unit PO DAILY 02/12/15 [History] Ascorbate Calcium [Vitamin C] 500 mg PO DAILY 07/14/15 [History] Calcium Crb,Cit/D3/Min34/Luis [Citracal + Bone Density Tablet] 1 tab PO DAILY 07/14/15 [History] amLODIPine [Norvasc] 5 mg PO BID 07/14/15 [History] Acetaminophen [Pain Relief] 500 mg PO BID PRN 03/22/17 [History] Warfarin [Coumadin] 1.5 mg PO SUTH 04/30/17 [History] levoFLOXacin [Levaquin] 750 mg PO DAILY #5 tablet 05/04/17 [Rx] Allergies/Adverse Reactions: 3 Allergy/AdvReac Type Severity Reaction Status Date / Time Sulfa (Sulfonamide Allergy Rash Verified 03/22/17 11:20 Antibiotics) magnesium AdvReac Unknown See Verified 03/22/17 11:20 Comments Date of admission: 04/30/17 15:22 Primary care physician: José Grace DO Discharging clinician: Suad Berman Anticipated date of discharge: 05/04/17 - Patient Status Disposition: Transfer SNF Condition: Fair Overall status at discharge: patient is progressing back to baseline - Discharge Instructions Follow Up With: José Grace DO [Primary Care Provider] - 05/11/17 11:00 am - Diet and Activity Activity: as per physical therapy Diet: low fat, low cholesterol (fluid restriction) Interval History: Patient denies shortness of breath. He states that he is feeling better. Hospital course: Mr. Hodgson is a 86 year old male admitted for pneumonia after a several day history of increasing shortness of breath/dyspnea with a productive cough. He had been seen at urgent care and diagnosed with acute bronchitis. His was sick with pneumonia. He also had leg weakness. He was initially treated with vancomycin and Zosyn. The vancomycin was discontinued after 2 days when blood cultures came back negative. The Zosyn was continued throughout the hospitalization. He is being discharged on Levaquin to complete 10 days of antibiotics. His RSV swab returned positive. This was most likely the inciting incident that triggered the bacterial pneumonia. He also was having an acute exacerbation of his congestive heart failure; BNP 317 on admission. He had bilateral swelling in his legs and feet for 1 week prior to admission. He was treated with IV Lasix during this admission and is being discharged with his home dose of Lasix. On the day of discharge, he is satting well on room air. He denies shortness of breath. He does not have pedal edema. - Time Spent with Patient Total time spent providing and/or coordinating discharge services: - Constitutional Vitals: Temp Pulse Resp BP Pulse Ox 98.7 F 65 16 131/72 95 05/04/17 11:23 05/04/17 11:23 05/04/17 11:23 05/04/17 11:23 05/04/17 11:23 General appearance: Present: cooperative, A&O X 3, pleasant, obese, answers questions appropriately - Head Head exam: Present: atraumatic, normocephalic - Eye Eye exam: Present: PERRL, conjuntiva pink, sclera anicteric Pupils: Present: PERRL - Neck Neck exam general surgery: Present: supple, trachea midline - Respiratory Respiratory exam: Present: wheezes (throughout, inspiratory and expiratory, loudest end expiratory) - Cardiovascular Cardiovascular exam: Present: irregular rhythm, +S1, +S2 - GI/Abdominal GI/Abdominal exam: Present: normal bowel sounds, soft, no peritoneal signs. Absent: distended, tenderness - Extremities Exam Extremities exam: Present: warm. Absent: pedal edema, tenderness Additional comments: Dorsalis pedis pulses palpable and symmetric - Neurological Exam Neurological exam: Present: CN II-XII intact, oriented X3, no focal deficits. Absent: pronater drift, facial droop, speech deficit - Skin Skin exam: Present: dry, intact - VTE Documentation of Mechanical Device: Intermittent pneumatic compression device <Law Pastrana - Last Filed: 05/04/17 17:53> Date of Encounter: 05/04/17 - Discharge Diagnosis (1) Chronic suprapubic catheter Status: Acute (2) Prostate cancer metastatic to bone Status: Chronic (3) Pneumonia Status: Acute Qualifiers: Pneumonia type: due to unspecified organism Laterality: right Lung location: lower lobe of lung Qualified Code(s): J18.1 - Lobar pneumonia, unspecified organism (4) Atrial fibrillation Status: Chronic Qualifiers: Atrial fibrillation type: permanent Qualified Code(s): I48.2 - Chronic atrial fibrillation (5) HTN (hypertension) Status: Chronic Qualifiers: Hypertension type: essential hypertension Qualified Code(s): I10 - Essential (primary) hypertension (6) Acute exacerbation of CHF (congestive heart failure) Status: Acute Qualifiers: Congestive heart failure type: diastolic Qualified Code(s): I50.33 - Acute on chronic diastolic (congestive) heart failure Date of admission: 04/30/17 15:22 Primary care physician: José Grace DO Hospital course: Mr. Hodgson is a 86 year old male - Time Spent with Patient Total time spent providing and/or coordinating discharge services: - Constitutional Vitals: Temp Pulse Resp BP Pulse Ox 98.7 F 65 16 131/72 95 05/04/17 11:23 05/04/17 11:23 05/04/17 11:23 05/04/17 11:23 05/04/17 11:23 - Attending Attestation I conducted a face to face diagnostic evaluation of this patient and my medical decision-making was reviewed with the Resident Physician, Dr Berman. I agree with the documented findings, disposition and treatment plan as described except to the extent set forth below: Patient is in no acute distress. Lung exam reveals bilateral radials. Heart is regular. There is no lower extremity edema. Patient is medical stable for discharge to subacute rehabilitation. We will continue oral antibiotics to complete the course for pneumonia. Law Pastrana MD
--- NOTE | 2017-05-04 11:40 | Physician Discharge Referral ---
ExtendedCare Referral Info Transfer To: [facility] Provider in Charge after Transfer: Other Institutional Level of Care: Skilled - Diagnosis (1) Pneumonia Priority: Primary Status: Acute (2) Acute exacerbation of CHF (congestive heart failure) Priority: Primary Status: Acute (3) Chronic suprapubic catheter Priority: Secondary Status: Acute (4) Atrial fibrillation Priority: Secondary Status: Chronic (5) HTN (hypertension) Priority: Secondary Status: Chronic (6) Prostate cancer metastatic to bone Priority: Secondary Status: Chronic - Transfer Medications Prescriptions: levoFLOXacin [Levaquin] 750 mg PO DAILY #5 tablet Home Medications: Calcium Polycarbophil [Fibercon] 625 mg PO DAILY 12/08/14 [History] Carvedilol [Coreg] 12.5 mg PO BID 12/08/14 [History] Furosemide [Lasix] 20 mg PO DAILY 12/08/14 [History] Lutein 20 mg PO DAILY 12/08/14 [History] Potassium Chloride 10 meq PO QID 12/08/14 [History] Quinapril HCl [Accupril] 40 mg PO BID 12/08/14 [History] Simvastatin [Zocor] 20 mg PO HS 12/08/14 [History] Vitamin E 100 unit PO DAILY 12/08/14 [History] Warfarin [Coumadin] 3 mg PO MOTUWEFRSA 12/08/14 [History] Cholecalciferol (Vitamin D3) [Vitamin D3] 5,000 unit PO DAILY 02/12/15 [History] Ascorbate Calcium [Vitamin C] 500 mg PO DAILY 07/14/15 [History] Calcium Crb,Cit/D3/Min34/Luis [Citracal + Bone Density Tablet] 1 tab PO DAILY 07/14/15 [History] amLODIPine [Norvasc] 5 mg PO BID 07/14/15 [History] Acetaminophen [Pain Relief] 500 mg PO BID PRN 03/22/17 [History] Warfarin [Coumadin] 1.5 mg PO SUTH 04/30/17 [History] levoFLOXacin [Levaquin] 750 mg PO DAILY #5 tablet 05/04/17 [Rx] Allergies/Adverse Reactions: 3 Allergy/AdvReac Type Severity Reaction Status Date / Time Sulfa (Sulfonamide Allergy Rash Verified 03/22/17 11:20 Antibiotics) magnesium AdvReac Unknown See Verified 03/22/17 11:20 Comments - Respiratory Orders Smoking Cessation: Smoking cessation has been advised. For more information, call the [place] Tobacco Quit Line at 7-150-PMHA-NOW. - Advance Directives Code Status: Full Code - Mobility Orders Chair, Ambulate - Rehabiliation Orders Rehab Potential: Fair Rehab Orders: Evaluation for Physical Therapy, Evaluation for Occupational Therapy - Diet Orders Cardiac (fluid restriction) CERTIFICATION: I certify that the transfer of the above named patient to an Extended Care Facility is necessary for the continuing treatment of the diagnosis listed. The above information is true and accurate reflection of patient's current condition. Confidential - Redisclosure prohibited without a patient's written consent.
[2017-05-04] MEDS ORDERED: *HR* Warfarin 3 MG TABLET PO ONE (18:00)
[2017-05-04] MEDS ORDERED: Warfarin perPT PO SCH (18:00)
--- NOTE | 2017-05-06 11:52 | Electrocardiograph Report ---
[address] [place], [place] [address] Test Date: 2017-05-01 Pat Name: Miguel Hodgson Department: 113 Room: 3B14 Gender: M Dish Carrier: : 1930 Requested By: Harjit Yi Order Number: [id number] Reading MD: Debo Barrera Measurements Intervals Ashley Rate: 65 P: VA: 0 QRS: 88 QRSD: 166 T: 248 QT: 481 QTc: 492 Interpretive Statements ELECTRONIC VENTRICULAR PACEMAKER ST DEVIATION AND MARKED T-WAVE ABNORMALITY, CONSIDER LATERAL ISCHEMIA ST DEVIATION AND MODERATE T-WAVE ABNORMALITY, CONSIDER INFERIOR ISCHEMIA Electronically Signed On 05-06-2017 11:51:14 EST by Debo Barrera
== END 2017-05-04 14:20 | DRG 177 ==
LOC: 3BNU 11:10 → EMEROO 11:10 → 3BNU 13:51 → SUATTDRO 15:22
PROVIDERS: ADMIT Internal Medicine Nephrology; ATTEND Internal Medicine

== ENCOUNTER 2018-06-30 17:01 | Inpatient (IN) ==
[2018-06-30 17:44] LABS: Basophils % 0.4 %; Eosinophils # 0.1 K/mcL (0.0-0.6); Eosinophils % 1.1 %; Hematocrit 29.2 % (37.5-50.1); Hemoglobin 9.3 g/dL (12.9-16.9); Immature Granulocytes % 0.4 % (0-4); Lymphocytes # 0.8 K/mcL (0.6-4.6); Lymphocytes % 8.9 %; Mean Corpuscular HGB Conc 31.8 g/dL (31.6-35.5); Mean Corpuscular Hemoglobin 28.8 pg (28.0-33.3); Mean Corpuscular Volume 90.4 fL (83.0-100.0); Mean Platelet Volume 8.5 fL (9.4-12.4); Monocytes # 0.6 K/mcL (0.0-1.3); Monocytes % 6.7 %; Neutrophils # 7.4 K/mcL (1.6-8.9); Platelet Count 190 K/mcL (140-400); Red Blood Count 3.23 M/mcL (4.19-5.50); Red Cell Distribution Width 15.8 % (11.5-14.5); Segmented Neutrophils % 82.5 %
[2018-06-30 17:51] LABS: INR 2.4; Prothrombin Time 27.2 Seconds (9.4-12.1)
[2018-06-30 18:01] LABS: Calcium 9.4 mg/dL (8.6-10.3); Potassium 4.5 mEq/L (3.5-5.1); Troponin I 0.03 ng/mL (< 0.04)
[2018-06-30] MEDS ORDERED: cefTRIAXone 1,000 MG in Water for inj. (sterile) 20 ML 10 ML IVP ONE (18:19)
[2018-06-30] MEDS ORDERED: Azithromycin 500 MG in D5% in Water 250 ML IVPB ONE (18:20)
--- NOTE | 2018-06-30 18:56 | Emergency Department Note ---
Disposition Clinical Impression: Pneumonia Qualifiers: Pneumonia type: due to unspecified organism Laterality: unspecified laterality Lung location: unspecified part of lung Qualified Code(s): J18.9 - Pneumonia, unspecified organism CHF exacerbation Qualifiers: Heart failure type: unspecified Qualified Code(s): I50.9 - Heart failure, unspecified Disposition: Admitted As Inpatient Condition: Good General Adult HPI - General Chief complaint: ED Chest Pain Stated complaint: NAYAN Time Seen by Provider: 06/30/18 17:15 Source: EMS Limitations: no limitations Nursing Notes Reviewed: Yes Vital Signs Reviewed: Yes - History of Present Illness HPI Narrative: Patient presenting for evaluation of shortness of breath. Started 2 days ago. Worse last night. Unable to lay in bed. Had to sit in chair. Patient states overall felt better until today where he noticed swelling in his legs as well as exertional dyspnea. Concern for underlying CHF. Patient states he has had a cough upon sputum production which she describes as thick and yellow. Patient will undergo CHF versus pneumonia evaluation. Pain Scale: 0 - Related Data Home Medications Medication Instructions Recorded Confirmed RX: Quinapril HCl [Accupril] 40 mg PO BID 12/08/14 06/30/18 RX: Simvastatin [Zocor] 20 mg PO HS 12/08/14 06/30/18 RX: Cholecalciferol (Vitamin D3) 5,000 unit PO DAILY 02/12/15 06/30/18 [Vitamin D3] RX: Acetaminophen [Pain Relief] 1,000 mg PO BID PRN 03/22/17 06/30/18 RX: Warfarin [Coumadin] 3 mg PO MOFR 04/30/17 06/30/18 RX: Docusate Sodium [Stool 100 mg PO DAILY 06/26/17 06/30/18 Softener] RX: Iron Fum,Ps/Folic/Bcomp,C No.9 1 cap PO DAILY 04/23/18 06/30/18 [Integra Plus Capsule] RX: Amlodipine Besylate 10 mg PO DAILY 05/21/18 06/30/18 RX: Calcium Polycarbophil 625 mg PO DAILY 05/21/18 06/30/18 [Fibercon] RX: Carvedilol 12.5 mg PO BID 05/21/18 06/30/18 RX: Furosemide [Lasix] 20 mg PO DAILY 05/21/18 06/30/18 RX: Lutein [Natural Lutein] 20 mg PO DAILY 05/21/18 06/30/18 RX: Potassium Chloride [K-Tab ER] 10 meq PO QID 05/21/18 06/30/18 RX: Vitamin E 1,000 unit PO DAILY 05/21/18 06/30/18 RX: Warfarin [Coumadin] 1.5 mg PO SUTUWETHSA 06/30/18 06/30/18 Allergies Allergy/AdvReac Type Severity Reaction Status Date / Time magnesium Allergy Unknown See Verified 05/21/18 14:32 Comments Sulfa (Sulfonamide AdvReac Nausea Verified 05/21/18 14:32 Antibiotics) All systems ED: reviewed and negative except as stated. Review of Systems: As Per HPI Constitutional: Reports: fever, weakness ENT ED: Reports: congestion Cardiovascular: Reports: dyspnea on exertion Respiratory: Reports: cough, dyspnea, wheezes Gastrointestinal: Reports: nausea. Denies: abdominal pain, vomiting Musculoskeletal: Denies: back pain Integumentary: Denies: rash, abrasion Endocrine: Reports: fatigue Past Medical History - Past Medical History Medical history: Reports: atrial fibrillation, cancer, hypertension Psychiatric history: Reports: no psych history - Social History Smoking Status: Never smoker Smokeless Tobacco Status: No Alcohol use: Reports: none Drug use: Reports: none Physical Exam General: Well appearing, nontoxic, no acute distress Head: Normocephalic Atraumatic Eyes: PERRL, EOMI ENT: Airway patent, no stridor Neck: supple, no meningismus Chest: Rales bilaterally with associated rhonchi. Cardiac: Regular rate and rhythm, no murmurs, rubs or gallops Abdomen: soft, nontender, nondistended; no guarding, rebound, or tenderness to percussion Musculoskeletal: Calves symmetric, nontender. Extremity: +2 pitting edema to the lower extremities. To the calf. Skin: No rash, normal skin tone. Neuro: Alert and Oriented to person, place, and time; No obvious focal deficit. - General Limitations: no limitations General appearance: alert Course - Reevaluation(s) Reevaluation #1: Patient had delay in vital signs. After vital signs taken patient was noted to have a fever of 101. Concern for underlying influenza. Blood cultures obtained. Patient will undergo further evaluation for pneumonia. Chest x-ray with concern for effusion without specific infiltrate. BNP significantly elevated. Patient will be admitted for further management of CHF and pneumonia Vital Signs Temperature 101.1 F H 06/30/18 17:04 Pulse Rate 66 06/30/18 17:04 Respiratory Rate 18 06/30/18 17:04 Blood Pressure 148/58 06/30/18 17:04 O2 Sat by Pulse Oximetry 82 06/30/18 17:04 Temperature 101.1 F H 06/30/18 17:04 Pulse Rate 62 06/30/18 19:03 Respiratory Rate 18 06/30/18 19:53 Blood Pressure 120/54 06/30/18 19:53 O2 Sat by Pulse Oximetry 95 06/30/18 19:03 Oxygen Delivery Oxygen Delivery Nasal Cannula Medical Decision Making - Medical Records Medical records reviewed: Yes I reviewed the patient's medical records. - Lab Data Lab results reviewed: Yes I reviewed the patient's lab results. Result diagrams: 06/30/18 17:25 06/30/18 17:25 Lab Results 06/30/18 06/30/18 06/30/18 Range/Units 17:25 17:25 17:25 WBC 9.0 (4.3-11.1) K/mcL RBC 3.23 L (4.19-5.50) M/mcL Hgb 9.3 L (12.9-16.9) g/dL Hct 29.2 L (37.5-50.1) % MCV 90.4 (83.0-100.0) fL MCH 28.8 (28.0-33.3) pg MCHC 31.8 (31.6-35.5) g/dL RDW 15.8 H (11.5-14.5) % Plt Count 190 (140-400) K/mcL MPV 8.5 L (9.4-12.4) fL Immature Gran % 0.4 (0-4) % Seg Neutrophils % 82.5 % Lymphocytes % 8.9 % Monocytes % 6.7 % Eosinophils % 1.1 % Basophils % 0.4 % Neutrophils # 7.4 (1.6-8.9) K/mcL Lymphocytes # 0.8 (0.6-4.6) K/mcL Monocytes # 0.6 (0.0-1.3) K/mcL Eosinophils # 0.1 (0.0-0.6) K/mcL Basophils # 0.0 (0.0-0.2) K/mcL PT (9.4-12.1) Seconds INR Sodium 136 (136-145) mEq/L Potassium 4.5 (3.5-5.1) mEq/L Chloride 102 (98-107) mEq/L Carbon Dioxide 26 (23-29) mEq/L BUN 27 H (8-23) mg/dL Creatinine 1.78 H (0.70-1.30) mg/dL Est GFR ( Amer) 44 L (> 60) Est GFR (Non-Af Amer) 36 L (> 60) BUN/Creatinine Ratio 15 (6-26) Glucose 111 H (70-105) mg/dL Calculated Osmolality 288 (280-300) Lactic Acid 0.8 (0.5-2.2) mmol/L Calcium 9.4 (8.6-10.3) mg/dL Troponin I 0.03 (< 0.04) ng/mL B-Natriuretic Peptide (Less than 100) pg/mL 06/30/18 06/30/18 Range/Units 17:25 17:26 WBC (4.3-11.1) K/mcL RBC (4.19-5.50) M/mcL Hgb (12.9-16.9) g/dL Hct (37.5-50.1) % MCV (83.0-100.0) fL MCH (28.0-33.3) pg MCHC (31.6-35.5) g/dL RDW (11.5-14.5) % Plt Count (140-400) K/mcL MPV (9.4-12.4) fL Immature Gran % (0-4) % Seg Neutrophils % % Lymphocytes % % Monocytes % % Eosinophils % % Basophils % % Neutrophils # (1.6-8.9) K/mcL Lymphocytes # (0.6-4.6) K/mcL Monocytes # (0.0-1.3) K/mcL Eosinophils # (0.0-0.6) K/mcL Basophils # (0.0-0.2) K/mcL PT 27.2 H (9.4-12.1) Seconds INR 2.4 Sodium (136-145) mEq/L Potassium (3.5-5.1) mEq/L Chloride (98-107) mEq/L Carbon Dioxide (23-29) mEq/L BUN (8-23) mg/dL Creatinine (0.70-1.30) mg/dL Est GFR ( Amer) (> 60) Est GFR (Non-Af Amer) (> 60) BUN/Creatinine Ratio (6-26) Glucose (70-105) mg/dL Calculated Osmolality (280-300) Lactic Acid (0.5-2.2) mmol/L Calcium (8.6-10.3) mg/dL Troponin I (< 0.04) ng/mL B-Natriuretic Peptide 739 H (Less than 100) pg/mL - Radiology Data Radiology results reviewed: Yes I reviewed the patient's radiology results. Chest X-Ray 06/30/18 17:16 IMPRESSION: Cardiomegaly with small right pleural effusion. D/ / 06/30/2018 18:16:49 Jacques Man MD / jayce Interpreting Provider: Jacques Man MD
[2018-06-30] MEDS ORDERED: Acetaminophen 325 MG TABLET PO ONE (21:36)
[2018-06-30] MEDS ORDERED: Ondansetron 4 MG/2 ML VIAL IVP PRN (22:03)
[2018-06-30] MEDS ORDERED: Naloxone 0.4 MG/ML INJ IVP PRN (22:03)
[2018-06-30] MEDS ORDERED: Albuterol 2.5 MG/3 ML NEBULIZER IH PRN (22:03)
[2018-06-30] MEDS ORDERED: 0.9 % Sodium Chloride 1,000 ML IVC SCH (22:15)
--- NOTE | 2018-06-30 23:08 | Internal Med History&Physical ---
Date of Encounter: 06/30/18 Time of Encounter: 20:30 Internal Medicine - H&P: HPI Chief complaint: fever; cough; SOB Admitted From: Emergency Dept Plans for Post Hospital Care: Home History of present illness: Mr. Hodgson is an 87 year old male who presents today with complaints of fever, shakes, chills, cough, shortness of breath, and weakness. Symptoms started abruptly yesterday and have progressively worsened. He has a history of chronic diastolic CHF and pulmonary hypertension. He wears CPAP at night for sleep apnea. He was feeling normal and well until the last 24 hours or so with above symptoms. He denies any ill contacts but he was at a birthday libertarian last week and might have been exposed to an unknown ill person. He also complains of some hematuria. He has a suprapubic catheter and has catheter changed every month. He was recently diagnosed with bladder cancer. He has known prostate cancer and has been following with oncology and urology. He is on Coumadin for his atrial fibrillation, and this predisposes him to increased bleeding. He has had the hematuria for the last 3 weeks. He denies any vomiting or diarrhea. He denies any muscle or body aches. He denies any chest pain but has been coughing a good bit. He also has been more short of breath over last 1-2 days. He also comp lains of right groin pain, which has been more of a sharp shooting pain from his inguinal area to his testicle. He denies any testicular swelling, scrotal pain or edema, or any penile pain. He denies any trauma to his groin or scrotum. Past Med Surg Social Fam HX - Past Medical History Attestation: Yes The following information was validated with the patient. Source: patient, old records reviewed, obtained from family Medical history: atrial fibrillation, cancer (prostate and bladder), hypertension Additional medical history: postate CA and bladder CA Psychiatric history: no psych history - Past Surgical History Surgical History: prostatectomy, pacemaker - Social History Smoking Status: Never smoker Smokeless Tobacco Status: No Alcohol use: none Drug use: none Current living situation: Home, With Family Activity Level: Independent ambulation Recent Out of Country Travel Within the Last 8 Weeks: No - Family History Mother Family Member Ethnicity: Non- Living Status: Hx Family Neurologic Disorders: Yes (Alzheimer's disease) Father Family Member Ethnicity: Non- Living Status: Hx Family Cardiac Disorders: Yes (DC, Afib, HTN, HLD) Brother Family Member Ethnicity: Non- Living Status: Still Living Hx Family HEENT Disorders: Yes (Macular degeneration) Grandfather Family Member Ethnicity: Non- Living Status: Hx Family Cardiac Disorders: Yes (DC) Internal Medicine - H&P: Meds Quinapril HCl [Accupril] 40 mg PO BID 12/08/14 [History] Simvastatin [Zocor] 20 mg PO HS 12/08/14 [History] Cholecalciferol (Vitamin D3) [Vitamin D3] 5,000 unit PO DAILY 02/12/15 [History] Acetaminophen [Pain Relief] 1,000 mg PO BID PRN 03/22/17 [History] Warfarin [Coumadin] 3 mg PO MOFR 04/30/17 [History] Docusate Sodium [Stool Softener] 100 mg PO DAILY 06/26/17 [History] Iron Fum,Ps/Folic/Bcomp,C No.9 [Integra Plus Capsule] 1 cap PO DAILY 04/23/18 [History] Amlodipine Besylate 10 mg PO DAILY 05/21/18 [History] Calcium Polycarbophil [Fibercon] 625 mg PO DAILY 05/21/18 [History] Carvedilol 12.5 mg PO BID 05/21/18 [History] Furosemide [Lasix] 20 mg PO DAILY 05/21/18 [History] Lutein [Natural Lutein] 20 mg PO DAILY 05/21/18 [History] Potassium Chloride [K-Tab ER] 10 meq PO QID 05/21/18 [History] Vitamin E 1,000 unit PO DAILY 05/21/18 [History] Warfarin [Coumadin] 1.5 mg PO SUTUWETHSA 06/30/18 [History] Allergy/AdvReac Type Severity Reaction Status Date / Time magnesium Allergy Unknown See Verified 05/21/18 14:32 Comments Sulfa (Sulfonamide AdvReac Nausea Verified 05/21/18 14:32 Antibiotics) - Constitutional Constitutional: chills, fatigue, fever(s), no night sweats - EENT Eyes: no blurry vision, no change in vision Ears: no ear pain, no tinnitus Nose, mouth and throat: no nasal congestion, no sinus pressure, no sore throat - Cardiovascular Cardiovascular ROS IM: dyspnea, dyspnea on exertion, edema (baseline -- no change), orthopnea, paroxysmal nocturnal dyspnea, no chest pain, no syncope - Respiratory Respiratory: cough, dyspnea, dyspnea on exertion, chest congestion, change in phlegm color, pain with cough, no excessive phlegm production - Gastrointestinal Gastrointestinal: abdominal pain (suprapubic), no diarrhea, no heartburn, no hematemesis, no hematochezia, no melena, no nausea, no vomiting - Genitourinary Genitourinary ROS male: hematuria, other (right ggroin pain radiating to right testicle), no flank pain - Musculoskeletal Musculoskeletal ROS IM: no arthralgias, no back pain, no myalgias - Integumentary Integumentary IM: no rash, no jaundice - Neurological Neurological ROS: no disequilibrium, no dizziness, no focal weakness, no frequent falls, no headache(s) - Psychiatric Psychiatric: no anxiety, no depression - Endocrine Endocrine IM: no polydipsia, no polyphagia, no polyuria - Hematologic/Lymphatic Hematologic/Lymphatic: easy bruising - Allergic/Immunologic Allergic/Immunologic: no GI upset with certain foods - Constitutional Vitals: Temp Pulse Resp BP Pulse Ox 100.4 F H 66 16 104/52 91 06/30/18 22:51 06/30/18 22:51 06/30/18 22:51 06/30/18 22:51 06/30/18 22:51 General appearance: Present: cooperative, mild distress, A&O X 3, pleasant, answers questions appropriately Exam: ill; non-toxic; mildly SOB - Head Head exam: Present: atraumatic, normal inspection - Eye Eye exam: Present: EOMI, PERRL. Absent: scleral icterus Pupils: Present: normal accommodation - ENT ENT exam: Present: mucous membranes dry, normal exam, normal oropharynx - Neck Neck exam general surgery: Present: full ROM, supple, trachea midline. Absent: lymphadenopathy, tenderness, nuchal rigidity, thyromegaly - Respiratory Respiratory exam: Present: rales (right base), respiratory distress (mild splinting with deep inspiration), rhonchi. Absent: accessory muscle use, chest wall tenderness, prolonged expiratory phase, wheezes, tachypnea - Cardiovascular Cardiovascular exam: Present: distant heart sounds, +S1, +S2. Absent: diastolic murmur, JVD, systolic murmur Additional comments: palpable pacer left upper chest - GI/Abdominal GI/Abdominal exam: Present: normal bowel sounds, soft, tenderness (mild suprapubic pain). Absent: guarding, hepatomegaly, mass, rebound, splenomegaly Additional comments: suprapubic catheter in place without surrounding erythema, edema, or pain - exam: Absent: scrotal swelling, testicular tenderness Additional comments: palpable pain in right inguinal canal; no LA; no testicular/scrotal pain; no scrotal discoloration or lesions - Extremities Exam Extremities exam: Present: full ROM, normal capillary refill, pedal edema (trace), warm, radial pulses palpable and symmetrical. Absent: calf tenderness, joint swelling, tenderness - Back Exam Back exam: Absent: CVA tenderness (L), CVA tenderness (R) - Neurological Exam Neurological exam: Present: alert, CN II-XII intact, oriented X3, no focal deficits, strengths equal and symetr throughout Additional comments: hard of hearing - Psychiatric Psychiatric exam: Present: normal affect, normal mood - Skin Skin exam: Present: dry, intact, warm Internal Med - H&P Results - Labs CBC & Chem 7: 06/30/18 17:25 06/30/18 17:25 Labs: Short CBC 06/30/18 Range/Units 17:25 WBC 9.0 (4.3-11.1) K/mcL Hgb 9.3 L (12.9-16.9) g/dL Hct 29.2 L (37.5-50.1) % Plt Count 190 (140-400) K/mcL Neutrophils # 7.4 (1.6-8.9) K/mcL BMP 06/30/18 17:25 Sodium 136 Potassium 4.5 Chloride 102 Carbon Dioxide 26 BUN 27 H Creatinine 1.78 H Glucose 111 H Calcium 9.4 Cardiac Enzymes 06/30/18 Range/Units 17:25 Troponin I 0.03 (< 0.04) ng/mL - Impressions ITS Impressions Chest X-Ray 06/30/18 17:16 IMPRESSION: Cardiomegaly with small right pleural effusion. D/ / 06/30/2018 18:16:49 Jacques Man MD / jayce Interpreting Provider: Jacques Man MD - Diagnostic Studies Chest x-ray Status: image reviewed by me (cardiomegaly; small effusion; no appreciable infiltrate) - Assessment and plan (1) Pneumonia Current Visit: Yes Status: Suspected Assessment and plan: 1. Culture sputum, blood, and order Influenza testing. 2. Will treat with IV antibiotics, oxygen, and aerosols PRN. 3. Follow cultures and clinical course. Qualifiers: Pneumonia type: due to unspecified organism Laterality: right Lung location: lower lobe of lung Qualified Code(s): J18.1 - Lobar pneumonia, unspecified organism (2) Hematuria Current Visit: Yes Status: Acute Assessment and plan: 1. Will order U/A and culture. 2. Consult urology. 3. Suspect UTI based upon history and exam. Qualifiers: Hematuria type: gross Qualified Code(s): R31.0 - Gross hematuria (3) Atrial fibrillation Current Visit: Yes Status: Chronic Assessment and plan: 1. Will order EKG and place on telemetry. 2. Continue home meds as appropriate. 3. Coumadin dosing per pharmacy; INR currently therapeutic. 4. May need to stop Coumadin if hematuria worsens and/or he develops symptomatic anemia. Qualifiers: Atrial fibrillation type: permanent Qualified Code(s): I48.2 - Chronic atrial fibrillation (4) IQRA (acute kidney injury) Current Visit: Yes Status: Acute Assessment and plan: 1. Hold Lasix and will gingerly hydrate with IVF. 2. Monitor renal function and consult nephrology if fails to improve. 3. Appears intravasculary dry despite trace peripheral edema. (5) Acute respiratory failure with hypoxemia Current Visit: Yes Status: Acute Assessment and plan: 1. Likely due to suspected pneumonia and/or pulmonary HTN (as documented on most recent ECHO). 2. Oxygen as needed for support. 3. Night time CPAP and PRN. 4. Pneumonia treatment as above. (6) DVT prophylaxis Current Visit: Yes Status: Acute Assessment and plan: 1. Coumadin dosing per pharmacy.
[2018-07-01 01:06] LABS: Influenza A PCR Positive (Negative); Influenza B PCR Negative (Negative); Resp. Syncytial Virus PCR Negative (Negative)
[2018-07-01] MEDS: Ipratropium/Albuterol Neb 3 ML IH SCH ×4 (03:31→22:21)
[2018-07-01 03:54] LABS: Bilirubin,Urine Negative (Negative); Blood,Urine Large (Negative); Clarity,Urine Turbid (Clear); Color,Urine Brown (Yellow); Glucose,Urine (UA) Normal (Normal); Ketones,Urine Negative (Negative); Leukocyte Esterase,Urine Large (Negative); Nitrite,Urine Negative (Negative); Protein,Urine >=300 mg/dL (Neg-Trace); Specific Gravity,Urine 1.019 (1.010-1.025); Urobilinogen,Urine Normal (Normal)
[2018-07-01 04:09] LABS: Basophils % 0.4 %; Eosinophils # 0.1 K/mcL (0.0-0.6); Eosinophils % 1.2 %; Hematocrit 23.9 % (37.5-50.1); Hemoglobin 7.5 g/dL (12.9-16.9); Immature Granulocytes % 0.3 % (0-4); Lymphocytes # 1.5 K/mcL (0.6-4.6); Lymphocytes % 21.5 %; Mean Corpuscular HGB Conc 31.4 g/dL (31.6-35.5); Mean Corpuscular Hemoglobin 28.8 pg (28.0-33.3); Mean Corpuscular Volume 91.9 fL (83.0-100.0); Mean Platelet Volume 9.4 fL (9.4-12.4); Monocytes # 0.7 K/mcL (0.0-1.3); Monocytes % 10.6 %; Neutrophils # 4.5 K/mcL (1.6-8.9); Platelet Count 154 K/mcL (140-400); Red Cell Distribution Width 15.9 % (11.5-14.5)
[2018-07-01 04:11] LABS: INR 2.5; Prothrombin Time 28.2 Seconds (9.4-12.1)
[2018-07-01 04:22] LABS: Albumin 3.3 g/dL (3.5-5.7); Albumin/Globulin Ratio 1.4 (1.1-2.2); Bilirubin,Total 0.4 mg/dL (0.3-1.0); Calcium 8.6 mg/dL (8.6-10.3); Globulin 2.4 g/dL (2.4-3.5); Potassium 4.3 mEq/L (3.5-5.1); Total Protein 5.7 g/dL (6.4-8.9)
[2018-07-01] MEDS: Oseltamivir Phosphate 30 MG CAPSULE PO SCH ×2 (06:04→09:11)
--- NOTE | 2018-07-01 08:18 | Urology - Consult Note ---
Date of Encounter: 07/01/18 Time of Encounter: 08:14 - Assessment and Plan (1) Bladder cancer Current Visit: Yes Status: Acute Assessment and plan: 87-year-old man with bladder cancer. He appears to have some obstruction of his left ureteral orifice. He is scheduled to have further treatment at [facility]. We will defer active treatment at this time. Qualifiers: Bladder location: overlapping sites Qualified Code(s): C67.8 - Malignant neoplasm of overlapping sites of bladder (2) Hydronephrosis due to obstruction of ureter Current Visit: Yes Status: Acute Assessment and plan: He has chronic left hydronephrosis. His renal function is mildly worsening. We will see how his renal function does with hydration. If he develops persistent worsening of his renal function, we may need to proceed with placement of a left nephrostomy tube. (3) IQRA (acute kidney injury) Current Visit: Yes Status: Acute Assessment and plan: We will continue to follow his renal function. Again if it worsens, consider placement of left nephrostomy tube. (4) Hematuria Current Visit: Yes Status: Acute Assessment and plan: I irrigated his bladder with 1 L of normal saline. It did clear. I left the catheter to dependent drainage. I would recommend to hold his Coumadin at this time. Okay for subcutaneous heparin for DVT prophylaxis, but I would avoid other blood thinners. Urology will continue to follow and manage. Qualifiers: Hematuria type: gross Qualified Code(s): R31.0 - Gross hematuria (5) Chronic suprapubic catheter Current Visit: No Status: Acute Assessment and plan: He has a history of urethral stricture disease and has a 16-Macedonian suprapubic tube in place right now. We will continue to perform hand irrigation to keep his urine clear. 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 He is on androgen deprivation therapy. (7) Urinary tract infection Current Visit: No Status: Resolved Assessment and plan: 87-year-old man with likely urinary tract infection. This is associated with his suprapubic tube. I would recommend obtaining a urine culture and starting broad-spectrum antibiotic. Qualifiers: Urinary tract infection type: acute cystitis Hematuria presence: with h ematuria Qualified Code(s): N30.01 - Acute cystitis with hematuria Urology CN:HPI Consult date: 07/01/18 Reason for consult Urology: Gross Hematuria Requesting physician: Galileo Jaquez History of present illness: 87-year-old gentleman was admitted for fevers and chills. He also developed worsening hematuria over the last 3-4 weeks. He has an indwelling suprapubic tube which he typically leaves capped. He will intermittently drain his bladder. He reports that the urine is becoming more bloody. It has a cranberry to fruit punch color to it. He is not having any severe abdominal pain. The bleeding seems to be getting somewhat worse. He denies any aggravating or relieving factors. He has a known history of prostate cancer status post brachytherapy and radiation therapy. His most recent PSA was undetectable back in 03/10/2018. 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 He was also diagnosed with bladder cancer. He has consulted with Dr. Medel at [facility]. He is scheduled for a repeat transurethral resection of bladder tumor in July. He last had a suprapubic tube change on 06/19/2018. 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 Psychiatric history: no psych history - Past Surgical History Surgical History: prostatectomy, pacemaker - Social History Smoking Status: Never smoker Smokeless Tobacco Status: No Alcohol use: none Drug use: none - Family History Mother Family Member Ethnicity: Non- Living Status: Hx Family Neurologic Disorders: Yes (Alzheimer's disease) Father Family Member Ethnicity: Non- Living Status: Hx Family Cardiac Disorders: Yes (AL, Afib, HTN, HLD) Brother Family Member Ethnicity: Non- Living Status: Still Living Hx Family HEENT Disorders: Yes (Macular degeneration) Grandfather Family Member Ethnicity: Non- Living Status: Hx Family Cardiac Disorders: Yes (AL) Medications and Allergies Quinapril HCl [Accupril] 40 mg PO BID 12/08/14 [History] Simvastatin [Zocor] 20 mg PO HS 12/08/14 [History] Cholecalciferol (Vitamin D3) [Vitamin D3] 5,000 unit PO DAILY 02/12/15 [History] Acetaminophen [Pain Relief] 1,000 mg PO BID PRN 03/22/17 [History] Warfarin [Coumadin] 3 mg PO MOFR 04/30/17 [History] Docusate Sodium [Stool Softener] 100 mg PO DAILY 06/26/17 [History] Iron Fum,Ps/Folic/Bcomp,C No.9 [Integra Plus Capsule] 1 cap PO DAILY 04/23/18 [History] Amlodipine Besylate 10 mg PO DAILY 05/21/18 [History] Calcium Polycarbophil [Fibercon] 625 mg PO DAILY 05/21/18 [History] Carvedilol 12.5 mg PO BID 05/21/18 [History] Furosemide [Lasix] 20 mg PO DAILY 05/21/18 [History] Lutein [Natural Lutein] 20 mg PO DAILY 05/21/18 [History] Potassium Chloride [K-Tab ER] 10 meq PO QID 05/21/18 [History] Vitamin E 1,000 unit PO DAILY 05/21/18 [History] Warfarin [Coumadin] 1.5 mg PO SUTUWETHSA 06/30/18 [History] Allergy/AdvReac Type Severity Reaction Status Date / Time magnesium Allergy Unknown See Verified 05/21/18 14:32 Comments Sulfa (Sulfonamide AdvReac Nausea Verified 05/21/18 14:32 Antibiotics) Review of Systems - Constitutional chills, fever(s) - EENT Nose, mouth and throat: no dizziness - Cardiovascular no chest pain - Respiratory no dyspnea - Gastrointestinal no nausea, no vomiting - Genitourinary hematuria, no flank pain - Musculoskeletal no back pain - Integumentary no erythema, no rash - Neurological no weakness - Psychiatric no suicidal ideation - Hematologic/Lymphatic no easy bleeding - Allergic/Immunologic no wheezing Exam Initial Vital Signs Temp Pulse Resp BP Pulse Ox 101.1 F H 66 18 148/58 82 06/30/18 17:04 06/30/18 17:04 06/30/18 17:04 06/30/18 17:04 06/30/18 17:04 - General physical appearance Present: well developed, well nourished, no distress - Eyes Absent: icteric - ENT Present: normal nares - Neck Present: trachea midline - Respiratory Present: normal respiratory effort - Cardiovascular Cardiovascular exam IM: RRR - Abdomen Abdomen: Present: soft, non tender - Genitourinary other (Suprapubic tube in place.) - Integumentary Present: no rash - Neurologic Present: normal coordination - Musculoskeletal Present: other (Grossly normal) Urology Results - Labs 07/01/18 02:42 07/01/18 02:42 Abnormal lab results RBC 2.60 M/mcL (4.19-5.50) L 07/01/18 02:42 Hgb 7.5 g/dL (12.9-16.9) L D 07/01/18 02:42 Hct 23.9 % (37.5-50.1) L 07/01/18 02:42 MCHC 31.4 g/dL (31.6-35.5) L 07/01/18 02:42 RDW 15.9 % (11.5-14.5) H 07/01/18 02:42 PT 28.2 Seconds (9.4-12.1) H 07/01/18 02:42 BUN 28 mg/dL (8-23) H 07/01/18 02:42 Creatinine 1.93 mg/dL (0.70-1.30) H 07/01/18 02:42 Est GFR ( Amer) 40 (> 60) L 07/01/18 02:42 Est GFR (Non-Af Amer) 33 (> 60) L 07/01/18 02:42 Lactic Acid 0.4 mmol/L (0.5-2.2) L 06/30/18 19:20 B-Natriuretic Peptide 739 pg/mL (Less than 100) H 06/30/18 17:25 Serum Total Protein 5.7 g/dL (6.4-8.9) L 07/01/18 02:42 Albumin 3.3 g/dL (3.5-5.7) L 07/01/18 02:42 Urine Clarity Turbid (Clear) A 07/01/18 03:18 Urine Protein >=300 mg/dL (Neg-Trace) H 07/01/18 03:18 Urine Blood Large (Negative) H 07/01/18 03:18 Ur Leukocyte Esterase Large (Negative) H 07/01/18 03:18 Influenza Type A (PCR) Positive (Negative) A 06/30/18 23:45 Diabetes panel 06/30/18 07/01/18 Range/Units 17:25 02:42 Sodium 136 138 (136-145) mEq/L Potassium 4.5 4.3 (3.5-5.1) mEq/L Chloride 102 103 (98-107) mEq/L Carbon Dioxide 26 26 (23-29) mEq/L BUN 27 H 28 H (8-23) mg/dL Creatinine 1.78 H 1.93 H (0.70-1.30) mg/dL Glucose 111 H 90 (70-105) mg/dL Calcium 9.4 8.6 (8.6-10.3) mg/dL AST 20 (13-39) Units/L ALT 11 (7-52) Units/L Alkaline Phosphatase 50 (34-104) Units/L Albumin 3.3 L (3.5-5.7) g/dL Calcium panel 06/30/18 07/01/18 Range/Units 17:25 02:42 Calcium 9.4 8.6 (8.6-10.3) mg/dL Albumin 3.3 L (3.5-5.7) g/dL Pituitary panel 06/30/18 07/01/18 Range/Units 17:25 02:42 Sodium 136 138 (136-145) mEq/L Potassium 4.5 4.3 (3.5-5.1) mEq/L Chloride 102 103 (98-107) mEq/L Carbon Dioxide 26 26 (23-29) mEq/L BUN 27 H 28 H (8-23) mg/dL Creatinine 1.78 H 1.93 H (0.70-1.30) mg/dL Glucose 111 H 90 (70-105) mg/dL Calcium 9.4 8.6 (8.6-10.3) mg/dL Adrenal panel 06/30/18 07/01/18 Range/Units 17:25 02:42 Sodium 136 138 (136-145) mEq/L Potassium 4.5 4.3 (3.5-5.1) mEq/L Chloride 102 103 (98-107) mEq/L Carbon Dioxide 26 26 (23-29) mEq/L BUN 27 H 28 H (8-23) mg/dL Creatinine 1.78 H 1.93 H (0.70-1.30) mg/dL Glucose 111 H 90 (70-105) mg/dL Calcium 9.4 8.6 (8.6-10.3) mg/dL Total Bilirubin 0.4 (0.3-1.0) mg/dL AST 20 (13-39) Units/L ALT 11 (7-52) Units/L Alkaline Phosphatase 50 (34-104) Units/L Albumin 3.3 L (3.5-5.7) g/dL All other labs normal. Consult Discharge Plan - Plan Referrals: José Grace DO [Primary Care Provider] -
--- NOTE | 2018-07-01 08:21 | Internal Med Progress Note ---
Hospitalist Progress Note - Encounter Date of Encounter: 07/01/18 Time of Encounter: 08:21 - Subjective Interval History: Patient seen and examined this morning at bedside. No acute overnight events. Breathing slightly better. Continues to have bleeding in [place] with the red color urine and back. Denies any bowel complaints. Has suprapubic catheter. - Exam Vitals: Temp Pulse Resp BP Pulse Ox 99.6 F 61 13 128/56 92 07/01/18 07:48 07/01/18 07:48 07/01/18 07:48 07/01/18 07:48 07/01/18 07:48 Exam: General: In no acute distress. Conversant. Difficult to hear Respiratory exam: rhonci present bilateraly Cardiovascular exam: RRR, +S1, +S2. no murmur, gallop, rubs. GI/Abdominal exam: Non-tender, Non-distended, normal bowel sounds, soft, no peritoneal signs. suprapubic catheter Extremities exam: full ROM, 1+ pedal edema, warm, pulses palpable in b/l lower extremities. no calf tenderness Neurological exam: CN II-XII intact, AO X3, no focal deficits. no pronater drift, facial droop, speech deficit - Assessment and Plan (1) Pneumonia Current Visit: Yes Status: Suspected (2) Atrial fibrillation Current Visit: Yes Status: Chronic (3) DVT prophylaxis Current Visit: Yes Status: Acute (4) Hematuria Current Visit: Yes Status: Acute (5) IQRA (acute kidney injury) Current Visit: Yes Status: Acute (6) Acute respiratory failure with hypoxemia Current Visit: Yes Status: Acute - Summary of Assessment and Plan Summary of Assessment and Plan: Pneumonia - f/u sputum, blood culture - c/w ceftriaxone, azithromycin and supplemental oxygen - Has Influenza A positive. c/w oseltamivir Hematuria - Has history of bladder ca and prostate ca with bony metastasis - f/u urine culture. On ceftriaxone - Consulted urology. Had bladder irrigation. Will hold coumadin. Atrial fibrillation - On coumadin for AC. Will hold for now given hematuria and drop in hemoglobin - HR controlled. Anemia - Drop in Hb - On coumadin for afib - Hold for now. repeat H&H. if <7 will transfuse IQRA - Lasix held and on 75 cc NS. 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 Previously with with mild hydronephorsis on left on 06/13/18. Urology following. Acute respiratory failure with hypoxemia - Likely due to pneumonia/influenza on baseline pulmonary HTN. treatment as above - c/w supplemental oxygen - c/w Night time CPAP and PRN. Diastolic CHF - lasix held for now. Has mild pedal edema - not in exacerbation. - On gentle IVF. Monitor for overload DVT prophylaxis - coumadin stopped. - keep on EPCD - Time Spent with Patient Total time spent is greater than 50% in coordination of care (as documented) at patient's floor/unit and/or counseling patient: Internal Medicine: Result - Labs CBC & Chem 7: 07/01/18 02:42 07/01/18 02:42 Labs: Short CBC 06/30/18 07/01/18 Range/Units 17:25 02:42 WBC 9.0 6.8 (4.3-11.1) K/mcL Hgb 9.3 L 7.5 L D (12.9-16.9) g/dL Hct 29.2 L 23.9 L (37.5-50.1) % Plt Count 190 154 (140-400) K/mcL Neutrophils # 7.4 4.5 (1.6-8.9) K/mcL BMP 06/30/18 07/01/18 17:25 02:42 Sodium 136 138 Potassium 4.5 4.3 Chloride 102 103 Carbon Dioxide 26 26 BUN 27 H 28 H Creatinine 1.78 H 1.93 H Glucose 111 H 90 Calcium 9.4 8.6 Cardiac Enzymes 06/30/18 Range/Units 17:25 Troponin I 0.03 (< 0.04) ng/mL Liver Function 07/01/18 Range/Units 02:42 Total Bilirubin 0.4 (0.3-1.0) mg/dL AST 20 (13-39) Units/L ALT 11 (7-52) Units/L Alkaline Phosphatase 50 (34-104) Units/L Albumin 3.3 L (3.5-5.7) g/dL Urine 07/01/18 Range/Units 03:18 Urine Color Brown (Yellow) Urine Clarity Turbid A (Clear) Urine pH 6.0 (5.0-8.0) pH Units Ur Specific [place] 1.019 (1.010-1.025) Urine Protein >=300 H (Neg-Trace) mg/dL Urine Glucose (UA) Normal (Normal) mg/dL - ABG Interpretation ABG results: PT/INR, D-dimer PT 28.2 Seconds (9.4-12.1) H 07/01/18 02:42 - Impressions Impressions Chest X-Ray 06/30/18 17:16 IMPRESSION: Cardiomegaly with small right pleural effusion. D/ / 06/30/2018 18:16:49 Jacques Man MD / jayce Interpreting Provider: Jacques Man MD Consult Discharge Plan - Plan Referrals: José Grace DO [Primary Care Provider] - (1) Pneumonia Qualifiers: Pneumonia type: due to unspecified organism Laterality: right Lung location: lower lobe of lung Qualified Code(s): J18.1 - Lobar pneumonia, unspecified organism (2) Atrial fibrillation Qualifiers: Atrial fibrillation type: permanent Qualified Code(s): I48.2 - Chronic atrial fibrillation (4) Hematuria Qualifiers: Hematuria type: gross Qualified Code(s): R31.0 - Gross hematuria
[2018-07-01] MEDS ORDERED: cefTRIAXone 1,000 MG in Water for inj. (sterile) 20 ML 10 ML IVP SCH (09:00)
[2018-07-01] MEDS ORDERED: amLODIPine 5 MG TABLET PO SCH (09:00)
[2018-07-01] MEDS: INTEGRA PLUS PO SCH (09:11)
[2018-07-01] MEDS: (Lutein 20 MG) PO SCH (09:11)
[2018-07-01] MEDS: Azithromycin 250 MG in D5% in Water 250 ML IVPB SCH (09:19)
[2018-07-01] MEDS: Cholecalciferol (D-3) 1,000 UNIT TABLET PO SCH (09:19)
--- NOTE | 2018-07-01 12:52 | Electrocardiograph Report ---
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
--- NOTE | 2018-07-01 13:00 | Electrocardiograph Report ---
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
[2018-07-01 16:20] LABS: Hematocrit 24.8 % (37.5-50.1)
[2018-07-01] MEDS ORDERED: *HR* Warfarin 1 MG TABLET PO ONE (18:00)
[2018-07-01] MEDS ORDERED: Warfarin perPT PO PRN (18:00)
[2018-07-01] MEDS: Acetaminophen 325 MG TABLET PO PRN (20:01)
[2018-07-01 21:56] LABS: Creatinine,Urine < 1 mg/dL; Sodium, Urine < 10.0 mEq/L
[2018-07-02 02:07] LABS: Hematocrit 22.7 % (37.5-50.1); Hemoglobin 7.2 g/dL (12.9-16.9)
[2018-07-02 02:15] LABS: INR 2.2; Prothrombin Time 24.9 Seconds (9.4-12.1)
[2018-07-02 02:27] LABS: Calcium 8.3 mg/dL (8.6-10.3); Potassium 4.1 mEq/L (3.5-5.1)
[2018-07-02] MEDS: Ipratropium/Albuterol Neb 3 ML IH SCH ×4 (03:21→21:58)
--- NOTE | 2018-07-02 07:48 | Internal Med Progress Note ---
Hospitalist Progress Note - Encounter Date of Encounter: 07/02/18 Time of Encounter: 07:40 - Subjective Interval History: Patient seen and examined this morning at bedside. No acute overnight events. Patient on BiPAP this morning. Did not receive CPAP for past 2 nights per nurse. He denies any chest pain, abdominal pain, back pain. Denies any new complaint. Has some discomfort with khan. - Exam Vitals: Temp Pulse Resp BP Pulse Ox 98.7 F 61 22 132/64 95 07/02/18 07:21 07/02/18 07:21 07/02/18 07:28 07/02/18 07:21 07/02/18 07:28 Exam: General: In no acute distress. Conversant. Difficult to hear Respiratory exam: minimal rhonchi present, air entry improved since yesterday. Cardiovascular exam: RRR, +S1, +S2. no murmur, gallop, rubs. GI/Abdominal exam: Non-tender, Non-distended, normal bowel sounds, soft, no peritoneal signs. suprapubic catheter Extremities exam: full ROM, 1+ pedal edema, warm, pulses palpable in b/l lower extremities. no calf tenderness Neurological exam: CN II-XII intact, AO X3, no focal deficits. no pronater drift, facial droop, speech deficit - Assessment and Plan (1) Pneumonia Current Visit: Yes Status: Suspected (2) Atrial fibrillation Current Visit: Yes Status: Chronic (3) DVT prophylaxis Current Visit: Yes Status: Acute (4) Hematuria Current Visit: Yes Status: Acute (5) IQRA (acute kidney injury) Current Visit: Yes Status: Acute (6) Acute respiratory failure with hypoxemia Current Visit: Yes Status: Acute - Summary of Assessment and Plan Summary of Assessment and Plan: Pneumonia - f/u sputum, blood culture - c/w azithromycin and supplemental oxygen. ceftriaxone switched to zosyn given possible retention and UTI with hydronephrosis - Has Influenza A positive. c/w oseltamivir Hematuria - Has history of bladder ca and prostate ca with bony metastasis - f/u urine culture. Growing GNR. ceftriaxone switched to zosyn - Urology following. - Coumadin reversed given ongoing hematuria with Vitamin K Atrial fibrillation - On coumadin for AC. - AC on hold due to hematuria - rate controlled with coreg. Anemia - Drop in Hb - On coumadin for afib - Hold for now. - reversed with vit K. Will give slow transfusion of PRBC - Will also give FFP to normalize INR tor IR guided nephrostomy IQRA - Lasix held intially given IQRA. 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 Urology following. To get CT abd/pelvis. plan for IR guided lt nephrostomy once INR < 1.5 Acute respiratory failure with hypoxemia - Likely due to pneumonia/influenza on baseline pulmonary HTN. treatment as above - c/w supplemental oxygen - Was not put on CPAP last two nights. Will keep on Bipap given possiblity of fluid build up with PRBC and FFP. Will give one dose of lasix after FFP Diastolic CHF - lasix held for now. Has mild pedal edema - does have pedal edema. - Will be getting FFP and PRBC. Will monitor for overload and respiratory distress. Will give lasix after ffp. May need Bipap for respiratory distress. - On gentle IVF. Monitor for overload. DVT prophylaxis - coumadin stopped. - keep on EPCD - Time Spent with Patient Total time spent is greater than 50% in coordination of care (as documented) at patient's floor/unit and/or counseling patient: Internal Medicine: Result - Labs CBC & Chem 7: 07/02/18 01:26 07/02/18 01:26 Labs: Short CBC 07/01/18 07/02/18 Range/Units 16:10 01:26 Hgb 8.0 L 7.2 L (12.9-16.9) g/dL Hct 24.8 L 22.7 L (37.5-50.1) % BMP 07/02/18 01:26 Sodium 136 Potassium 4.1 Chloride 105 Carbon Dioxide 22 L BUN 35 H Creatinine 2.27 H Glucose 101 Calcium 8.3 L - ABG Interpretation ABG results: PT/INR, D-dimer PT 24.9 Seconds (9.4-12.1) H 07/02/18 01:26 Consult Discharge Plan - Plan Referrals: José Grace DO [Primary Care Provider] - (1) Pneumonia Qualifiers: Pneumonia type: due to unspecified organism Laterality: right Lung location: lower lobe of lung Qualified Code(s): J18.1 - Lobar pneumonia, unspecified organism (2) Atrial fibrillation Qualifiers: Atrial fibrillation type: permanent Qualified Code(s): I48.2 - Chronic atrial fibrillation (4) Hematuria Qualifiers: Hematuria type: gross Qualified Code(s): R31.0 - Gross hematuria
[2018-07-02] MEDS ORDERED: Furosemide 20 MG/2 ML VIAL IVP ONE ×2 (07:57→13:03)
--- NOTE | 2018-07-02 08:15 | Urology Progress Note ---
<Rhea Dwyer N - Last Filed: 07/02/18 08:11> Date of Encounter: 07/02/18 Time of Encounter: 07:40 - Assessment and Plan (1) IQRA (acute kidney injury) Current Visit: Yes Status: Acute (2) Bladder cancer Current Visit: Yes Status: Acute Qualifiers: Bladder location: overlapping sites Qualified Code(s): C67.8 - Malignant neoplasm of overlapping sites of bladder (3) Hematuria Current Visit: Yes Status: Acute Qualifiers: Hematuria type: gross Qualified Code(s): R31.0 - Gross hematuria (4) Chronic suprapubic catheter Current Visit: Yes Status: Acute (5) Prostate cancer metastatic to bone Current Visit: No Status: Chronic (6) Urinary tract infection Current Visit: Yes Status: Resolved Assessment and plan: Patient is an 87-year-old male who presents with a suprapubic catheter, gross hematuria and likely colonization of the bladder. Blood and urine cultures are pending. Patient has received IV Rocephin, and he is now receiving Zosyn. 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 Serum creatinine is rising and is now 2.27. Discussed need for left nephrostomy tube placement by interventional radiology. Patient will need Coumadin reversal in order to proceed with this procedure. I will discuss placing this consult with Dr. Pandya, who will reevaluate patient later today. Progress Note Narrative: Patient seen and examined sitting upright in bed in no apparent distress. Suprapubic catheter is indwelling and draining transparent pink lemonade urine into bedside bag. Patient reports he is due for preadmissions testing at [facility] on July 05 in order to proceed with reexcision of bladder tumor on July 20. Patient admits to continued dyspnea, but he denies any flank pain, fever or chills at this time. Objective Initial Vital Signs Temp Pulse Resp BP Pulse Ox 101.1 F H 66 18 148/58 82 06/30/18 17:04 06/30/18 17:04 06/30/18 17:04 06/30/18 17:04 06/30/18 17:04 - General physical appearance Present: no distress, no pain, chronically ill - Respiratory Present: normal expansion, normal respiratory effort - Abdomen Present: soft, non tender - Genitourinary Urine Appearance: Present: Hematuria - Integumentary Present: no rash, no abnormal pigmentation - Musculoskeletal Present: normal posture - Psychiatric Present: oriented to time, oriented to person, oriented to place, speech is normal, memory intact - Labs 07/02/18 01:26 07/02/18 01:26 Diabetes panel 07/02/18 Range/Units 01:26 Sodium 136 (136-145) mEq/L Potassium 4.1 (3.5-5.1) mEq/L Chloride 105 (98-107) mEq/L Carbon Dioxide 22 L (23-29) mEq/L BUN 35 H (8-23) mg/dL Creatinine 2.27 H (0.70-1.30) mg/dL Glucose 101 (70-105) mg/dL Calcium 8.3 L (8.6-10.3) mg/dL Calcium panel 07/02/18 Range/Units 01:26 Calcium 8.3 L (8.6-10.3) mg/dL Pituitary panel 07/02/18 Range/Units 01:26 Sodium 136 (136-145) mEq/L Potassium 4.1 (3.5-5.1) mEq/L Chloride 105 (98-107) mEq/L Carbon Dioxide 22 L (23-29) mEq/L BUN 35 H (8-23) mg/dL Creatinine 2.27 H (0.70-1.30) mg/dL Glucose 101 (70-105) mg/dL Calcium 8.3 L (8.6-10.3) mg/dL Adrenal panel 07/02/18 Range/Units 01:26 Sodium 136 (136-145) mEq/L Potassium 4.1 (3.5-5.1) mEq/L Chloride 105 (98-107) mEq/L Carbon Dioxide 22 L (23-29) mEq/L BUN 35 H (8-23) mg/dL Creatinine 2.27 H (0.70-1.30) mg/dL Glucose 101 (70-105) mg/dL Calcium 8.3 L (8.6-10.3) mg/dL Consult Discharge Plan - Plan Referrals: José Grace DO [Primary Care Provider] - <Kingston Pandya - Last Filed: 07/02/18 11:59> Date of Encounter: 07/02/18 - Assessment and Plan (1) Bladder cancer Current Visit: Yes Status: Acute Assessment and plan: Patient was seen and examined independently. I agree with the plan as written by Rhea Dwyre. Patient's urine has seemed to improve in color with less hematuria. Patient's serum creatinine has slowly risen and given less than hydronephrosis we will plan on having interventional radiology place a left nephrostomy tube today or tomorrow. Patient will have to have INR reversed. We will continue to follow along closely. Qualifiers: Bladder location: overlapping sites Qualified Code(s): C67.8 - Malignant neoplasm of overlapping sites of bladder Objective Initial Vital Signs Temp Pulse Resp BP Pulse Ox 101.1 F H 66 18 148/58 82 06/30/18 17:04 06/30/18 17:04 06/30/18 17:04 06/30/18 17:04 06/30/18 17:04 - Labs 07/02/18 01:26 07/02/18 01:26 Diabetes panel 07/02/18 Range/Units 01:26 Sodium 136 (136-145) mEq/L Potassium 4.1 (3.5-5.1) mEq/L Chloride 105 (98-107) mEq/L Carbon Dioxide 22 L (23-29) mEq/L BUN 35 H (8-23) mg/dL Creatinine 2.27 H (0.70-1.30) mg/dL Glucose 101 (70-105) mg/dL Calcium 8.3 L (8.6-10.3) mg/dL Calcium panel 07/02/18 Range/Units 01:26 Calcium 8.3 L (8.6-10.3) mg/dL Pituitary panel 07/02/18 Range/Units 01:26 Sodium 136 (136-145) mEq/L Potassium 4.1 (3.5-5.1) mEq/L Chloride 105 (98-107) mEq/L Carbon Dioxide 22 L (23-29) mEq/L BUN 35 H (8-23) mg/dL Creatinine 2.27 H (0.70-1.30) mg/dL Glucose 101 (70-105) mg/dL Calcium 8.3 L (8.6-10.3) mg/dL Adrenal panel 07/02/18 Range/Units 01:26 Sodium 136 (136-145) mEq/L Potassium 4.1 (3.5-5.1) mEq/L Chloride 105 (98-107) mEq/L Carbon Dioxide 22 L (23-29) mEq/L BUN 35 H (8-23) mg/dL Creatinine 2.27 H (0.70-1.30) mg/dL Glucose 101 (70-105) mg/dL Calcium 8.3 L (8.6-10.3) mg/dL
[2018-07-02] MEDS: Cholecalciferol (D-3) 1,000 UNIT TABLET PO SCH (10:00)
[2018-07-02] MEDS: Azithromycin 250 MG in D5% in Water 250 ML IVPB SCH (10:00)
[2018-07-02] MEDS: Piperacillin/Tazobactam 3.375 GM in 0.9 % Sodium Chloride Mini Bag 100 ML IVPB SCH ×2 (10:01→21:48)
[2018-07-02] MEDS: Oseltamivir Phosphate 30 MG CAPSULE PO SCH (10:01)
[2018-07-02] MEDS: INTEGRA PLUS PO SCH (10:02)
[2018-07-02] MEDS: (Lutein 20 MG) PO SCH (10:02)
[2018-07-02] MEDS ORDERED: 0.9 % Sodium Chloride 250 ML ONE (13:54)
[2018-07-02 17:41] LABS: INR 1.5; Prothrombin Time 17.4 Seconds (9.4-12.1)
[2018-07-02] MEDS: Acetaminophen 325 MG TABLET PO PRN (21:47)
[2018-07-03] MEDS: Ipratropium/Albuterol Neb 3 ML IH SCH ×4 (03:34→22:32)
[2018-07-03] MEDS: (Lutein 20 MG) PO SCH (08:07)
[2018-07-03] MEDS: INTEGRA PLUS PO SCH (08:07)
[2018-07-03] MEDS: Piperacillin/Tazobactam 3.375 GM in 0.9 % Sodium Chloride Mini Bag 100 ML IVPB SCH ×2 (08:23→20:16)
[2018-07-03] MEDS: Cholecalciferol (D-3) 1,000 UNIT TABLET PO SCH (08:25)
[2018-07-03] MEDS: Oseltamivir Phosphate 30 MG CAPSULE PO SCH (08:26)
[2018-07-03] MEDS ORDERED: *HR* FentaNYL (PF) 100 MCG/2 ML VIAL IVP ONE (10:34)
[2018-07-03] MEDS ORDERED: *HR* Midazolam HCl 2 MG/2 ML VIAL IVP ONE (10:34)
--- NOTE | 2018-07-03 10:34 | Pre-Sedation Evaluation ---
Pre-sedation evaluation - Pre-sedation checklist Recent Vitals: Last Vital Signs Temp 97.9 F 07/03/18 07:08 Pulse 60 07/03/18 07:08 Resp 19 07/03/18 07:08 BP 150/64 07/03/18 07:08 Pulse Ox 93 07/03/18 07:08 Airway Assessment: Patient can open mouth completely, TMJ function normal, Micrognathia (under-bite, receding chin) absent, Neck with adequate range of motion Dentition: No loose teeth or bridges Possible difficult airway: No ASA Classification *see protocol: CLASS II-Mild systemic disease Plan of Care: Pt appropriate candidate for procedure/moderate/conscious sedation, Risks/benefits of procedure/sedation discussed w/ patient/family
[2018-07-03] MEDS ORDERED: 0.9 % Sodium Chloride 250 ML ONE (10:35)
[2018-07-03] MEDS ORDERED: *HR* Midazolam HCl 2 MG/2 ML VIAL ONE (10:38)
[2018-07-03] MEDS ORDERED: *HR* FentaNYL (PF) 100 MCG/2 ML VIAL ONE (10:38)
[2018-07-03] MEDS: Azithromycin 250 MG in D5% in Water 250 ML IVPB SCH (11:57)
[2018-07-03 12:12] LABS: Basophils % 0.5 %; Eosinophils # 0.2 K/mcL (0.0-0.6); Eosinophils % 2.9 %; Hematocrit 28.8 % (37.5-50.1); Immature Granulocytes % 0.3 % (0-4); Lymphocytes # 0.7 K/mcL (0.6-4.6); Lymphocytes % 11.2 %; Mean Corpuscular Hemoglobin 29.5 pg (28.0-33.3); Mean Corpuscular Volume 89.4 fL (83.0-100.0); Monocytes # 0.6 K/mcL (0.0-1.3); Monocytes % 9.7 %; Neutrophils # 4.7 K/mcL (1.6-8.9); Platelet Count 178 K/mcL (140-400); Red Blood Count 3.22 M/mcL (4.19-5.50); Red Cell Distribution Width 15.3 % (11.5-14.5); Segmented Neutrophils % 75.4 %
[2018-07-03 12:13] LABS: Hemoglobin 9.5 g/dL (12.9-16.9)
[2018-07-03 12:19] LABS: INR 1.4; Prothrombin Time 15.8 Seconds (9.4-12.1)
[2018-07-03 12:30] LABS: Calcium 8.9 mg/dL (8.6-10.3); Potassium 3.6 mEq/L (3.5-5.1)
--- NOTE | 2018-07-03 13:12 | Internal Med Progress Note ---
Hospitalist Progress Note - Encounter Date of Encounter: 07/03/18 Time of Encounter: 11:40 - Subjective Interval History: Patient underwent left-sided nephrostomy tube placement today. Doing well postprocedure. Remains lethargic but hungry. Denies any fevers or chills at this time. No nausea or vomiting. Pain in his abdomen is fairly controlled. - Exam Vitals: Temp Pulse Resp BP Pulse Ox 97.7 F 62 18 143/62 92 07/03/18 11:20 07/03/18 11:56 07/03/18 12:10 07/03/18 11:56 07/03/18 12:10 Exam: General: Patient is somnolent but easily awakes. Oriented 3. ENT: Mucous membranes moist Respiratory: Good respiratory effort. Normal breath sounds. No wheezing or crackles. Cardiovascular: Regular rate and rhythm. s1 and s2 normal No clicks, rubs, gallops, or murmurs. No pedal edema Abdomen: Abdomen is soft, nontender, left-sided nephrostomy tube in place. Bowel sounds are present Musculoskeletal: Spontaneously moving all extremities Skin: warm, dry, intact. Neuro: Alert oriented x 3 normal cranial nerves, no focal deficits - Assessment and Plan (1) Acute respiratory failure with hypoxemia Current Visit: Yes Status: Acute Assessment and Plan: Continue O2 supplementation. Currently on 4 L nasal cannula. Wean FiO2 as tolerated. Treat underlying pneumonia and influenza (2) Pneumonia Current Visit: Yes Status: Suspected Assessment and Plan: Continue current antibiotics. Patient is on azithromycin and Zosyn. (3) Atrial fibrillation Current Visit: Yes Status: Chronic Assessment and Plan: rate controlled. On anticoagulation with Coumadin. Will resume later this evening. (4) Hematuria Current Visit: Yes Status: Acute Assessment and Plan: With history of prostate cancer and bladder cancer. Stable (5) DVT prophylaxis Current Visit: Yes Status: Acute (6) IQRA (acute kidney injury) Current Visit: Yes Status: Acute Assessment and Plan: Improving. Creatinine 1.91 today. (7) Influenza A Current Visit: Yes Status: Acute Assessment and Plan: On Tamiflu. (8) Anemia Current Visit: Yes Status: Chronic Assessment and Plan: Acute on chronic anemia. Hemoglobin 9.4 this morning. He did receive 1 unit PRBC transfusion yesterday. Coumadin was held for procedure today. Continue to monitor hemoglobin levels. Resume Coumadin. If patient continues to have hematuria we will need to discuss stopping Coumadin completely. - Time Spent with Patient Total time spent is greater than 50% in coordination of care (as documented) at patient's floor/unit and/or counseling patient: Internal Medicine: Result - Labs CBC & Chem 7: 07/03/18 11:48 07/03/18 11:48 Labs: Short CBC 07/03/18 Range/Units 11:48 WBC 6.3 (4.3-11.1) K/mcL Hgb 9.5 L D (12.9-16.9) g/dL Hct 28.8 L (37.5-50.1) % Plt Count 178 (140-400) K/mcL Neutrophils # 4.7 (1.6-8.9) K/mcL BMP 07/03/18 11:48 Sodium 140 Potassium 3.6 Chloride 102 Carbon Dioxide 28 BUN 34 H Creatinine 1.91 H Glucose 104 Calcium 8.9 - ABG Interpretation ABG results: PT/INR, D-dimer PT 15.8 Seconds (9.4-12.1) H 07/03/18 11:48 - Impressions Impressions Abdomen/Pelvis CT 07/02/18 11:35 IMPRESSION: Small bilateral pleural effusions with dense lower lobe consolidation, atelectasis and/or pneumonia. Follow-up to resolution is recommended. Left hydronephrosis and left hydroureter to the level of the urinary bladder. There is questionable soft tissue attenuation in the region of the left ureterovesical junction. Given diffuse marked wall thickening the urinary bladder, neoplasm could be considered. D/ / Tricia Arias Cha, MD / Tricia Arias Cha, MD Interpreting Provider: Tricia Arias Cha, MD Consult Discharge Plan - Plan Referrals: José Grace DO [Primary Care Provider] - 07/13/18 10:00 am (2) Pneumonia Qualifiers: Pneumonia type: due to unspecified organism Laterality: right Lung location: lower lobe of lung Qualified Code(s): J18.1 - Lobar pneumonia, unspecified organism (3) Atrial fibrillation Qualifiers: Atrial fibrillation type: permanent Qualified Code(s): I48.2 - Chronic atrial fibrillation (4) Hematuria Qualifiers: Hematuria type: gross Qualified Code(s): R31.0 - Gross hematuria (8) Anemia Qualifiers: Anemia type: unspecified type Qualified Code(s): D64.9 - Anemia, unspecified
[2018-07-03] MEDS: Acetaminophen 325 MG TABLET PO PRN (15:19)
--- NOTE | 2018-07-03 15:20 | Urology Progress Note ---
Date of Encounter: 07/03/18 Time of Encounter: 15:18 - Assessment and Plan (1) Bladder cancer Current Visit: Yes Status: Acute Assessment and plan: Patient status post left nephrostomy tube placement. We will wait tomorrow serum creatinine. I spoke with Dr. Lindsay today. At this time the risk of continuing with Coumadin might outweigh the potential benefit. Patient would like to hold on his Coumadin if possible. Qualifiers: Bladder location: overlapping sites Qualified Code(s): C67.8 - Malignant neoplasm of overlapping sites of bladder Progress Note Narrative: Patient seen this afternoon. Patient sore from having left nephrostomy tube placed. Good urine output from both catheter as well as left nephrostomy tube. Objective Initial Vital Signs Temp Pulse Resp BP Pulse Ox 101.1 F H 66 18 148/58 82 06/30/18 17:04 06/30/18 17:04 06/30/18 17:04 06/30/18 17:04 06/30/18 17:04 - General physical appearance Present: well developed, well nourished - Abdomen Present: soft. Absent: tender - Genitourinary Urine Appearance: Present: Clear (With small blood) - Additional Exam Back with left nephrostomy tube draining clear urine - Labs 07/03/18 11:48 07/03/18 11:48 Diabetes panel 07/03/18 Range/Units 11:48 Sodium 140 (136-145) mEq/L Potassium 3.6 (3.5-5.1) mEq/L Chloride 102 (98-107) mEq/L Carbon Dioxide 28 (23-29) mEq/L BUN 34 H (8-23) mg/dL Creatinine 1.91 H (0.70-1.30) mg/dL Glucose 104 (70-105) mg/dL Calcium 8.9 (8.6-10.3) mg/dL Calcium panel 07/03/18 Range/Units 11:48 Calcium 8.9 (8.6-10.3) mg/dL Pituitary panel 07/03/18 Range/Units 11:48 Sodium 140 (136-145) mEq/L Potassium 3.6 (3.5-5.1) mEq/L Chloride 102 (98-107) mEq/L Carbon Dioxide 28 (23-29) mEq/L BUN 34 H (8-23) mg/dL Creatinine 1.91 H (0.70-1.30) mg/dL Glucose 104 (70-105) mg/dL Calcium 8.9 (8.6-10.3) mg/dL Adrenal panel 07/03/18 Range/Units 11:48 Sodium 140 (136-145) mEq/L Potassium 3.6 (3.5-5.1) mEq/L Chloride 102 (98-107) mEq/L Carbon Dioxide 28 (23-29) mEq/L BUN 34 H (8-23) mg/dL Creatinine 1.91 H (0.70-1.30) mg/dL Glucose 104 (70-105) mg/dL Calcium 8.9 (8.6-10.3) mg/dL Consult Discharge Plan - Plan Referrals: José Grace DO [Primary Care Provider] - 07/13/18 10:00 am
[2018-07-03] MEDS ORDERED: *HR* Warfarin 3 MG TABLET PO ONE (18:00)
[2018-07-03] MEDS ORDERED: Warfarin perPT PO PRN (18:00)
[2018-07-03] MEDS ORDERED: Acetaminophen 325 MG TABLET PO PRN (20:48)
[2018-07-04 03:48] LABS: Basophils % 0.4 %; Eosinophils # 0.2 K/mcL (0.0-0.6); Eosinophils % 3.9 %; Hematocrit 26.1 % (37.5-50.1); Hemoglobin 8.6 g/dL (12.9-16.9); Immature Granulocytes % 0.2 % (0-4); Lymphocytes # 1.2 K/mcL (0.6-4.6); Mean Corpuscular Hemoglobin 28.9 pg (28.0-33.3); Mean Corpuscular Volume 87.6 fL (83.0-100.0); Mean Platelet Volume 9.1 fL (9.4-12.4); Monocytes # 0.7 K/mcL (0.0-1.3); Monocytes % 13.1 %; Neutrophils # 3.2 K/mcL (1.6-8.9); Platelet Count 180 K/mcL (140-400); Red Blood Count 2.98 M/mcL (4.19-5.50); Segmented Neutrophils % 60.4 %
[2018-07-04 03:54] LABS: INR 1.4; Prothrombin Time 15.6 Seconds (9.4-12.1)
[2018-07-04 04:08] LABS: Calcium 8.5 mg/dL (8.6-10.3); Potassium 3.2 mEq/L (3.5-5.1)
[2018-07-04] MEDS: Ipratropium/Albuterol Neb 3 ML IH SCH ×4 (05:33→21:47)
--- NOTE | 2018-07-04 08:34 | Internal Med Progress Note ---
Hospitalist Progress Note - Encounter Date of Encounter: 07/04/18 Time of Encounter: 08:30 - Subjective Interval History: 87 year old male who presents today with complaints of fever, shakes, chills, cough, shortness of breath, and weakness. Symptoms started abruptly yesterday and have progressively worsened. He has a history of chronic diastolic CHF and pulmonary hypertension. He wears CPAP at night for sleep apnea. He was feeling normal and well until the last 24 hours or so with above symptoms. He denies any ill contacts but he was at a birthday green party last week and might have been exposed to an unknown ill person. He also complains of some hematuria. He has a suprapubic catheter and has catheter changed every month. He was recently di agnosed with bladder cancer - Exam Vitals: Temp Pulse Resp BP Pulse Ox 97.7 F 67 19 159/66 92 07/04/18 07:29 07/04/18 07:29 07/04/18 07:29 07/04/18 07:29 07/04/18 07:29 Exam: General: Patient is somnolent but easily awakes. Oriented 3. ENT: Mucous membranes moist Respiratory: Good respiratory effort. Normal breath sounds. No wheezing or crackles. Cardiovascular: Regular rate and rhythm. s1 and s2 normal No clicks, rubs, gallops, or murmurs. No pedal edema Abdomen: Abdomen is soft, nontender, left-sided nephrostomy tube in place. Bowel sounds are present Musculoskeletal: Spontaneously moving all extremities Skin: warm, dry, intact. Neuro: Alert oriented x 3 normal cranial nerves, no focal deficits - Assessment and Plan (1) Acute respiratory failure with hypoxemia Current Visit: Yes Status: Acute Assessment and Plan: Likely secondary to pneumonia and influenza. Continue antibiotics and supportive care (2) Anemia Current Visit: Yes Status: Chronic Assessment and Plan: Acute on chronic anemia. Likely secondary to hematuria. Stable. Continue to monitor (3) Pneumonia Current Visit: Yes Status: Acute Assessment and Plan: Continue azithromycin and Zosyn. Follow blood cultures (4) Atrial fibrillation Current Visit: Yes Status: Chronic Assessment and Plan: rate controlled. s/p left nephrostomy tube placement with hematuria. Coumadin on hold (5) Hematuria Current Visit: Yes Status: Acute Assessment and Plan: With history of prostate cancer and bladder cancer. Urology following (6) IQRA (acute kidney injury) Current Visit: Yes Status: Acute Assessment and Plan: Likely secondary to obstruction. Patient is s/p nephrostomy tube placement Monitor creatinine. (7) Influenza A Current Visit: Yes Status: Acute Assessment and Plan: On Tamiflu. Continue supportive management (8) DVT prophylaxis Current Visit: Yes Status: Acute Assessment and Plan: Hold coumadin. Continue SCDS - Time Spent with Patient Total time spent is greater than 50% in coordination of care (as documented) at patient's floor/unit and/or counseling patient: Internal Medicine: Result - Labs CBC & Chem 7: 07/04/18 03:15 07/04/18 03:15 Labs: Short CBC 07/03/18 07/04/18 Range/Units 11:48 03:15 WBC 6.3 5.3 (4.3-11.1) K/mcL Hgb 9.5 L D 8.6 L (12.9-16.9) g/dL Hct 28.8 L 26.1 L (37.5-50.1) % Plt Count 178 180 (140-400) K/mcL Neutrophils # 4.7 3.2 (1.6-8.9) K/mcL BMP 07/03/18 07/04/18 11:48 03:15 Sodium 140 141 Potassium 3.6 3.2 L Chloride 102 103 Carbon Dioxide 28 27 BUN 34 H 34 H Creatinine 1.91 H 1.92 H Glucose 104 95 Calcium 8.9 8.5 L - ABG Interpretation ABG results: PT/INR, D-dimer PT 15.6 Seconds (9.4-12.1) H 07/04/18 03:15 - Impressions Impressions Abscess Drainage CT 07/03/18 00:00 IMPRESSION: Successful percutaneous nephrostomy tube placement D/ / Shad Goddard MD / Shad Goddard MD Interpreting Provider: Shad Goddard MD Retroperitoneum Ultrasound 07/03/18 17:00 IMPRESSION: No hydronephrosis. No obstructive cause of acute kidney insufficiency D/ / Flip Madison MD / Flip Madison MD Interpreting Provider: Flip Madison MD Consult Discharge Plan - Plan Referrals: José Grace DO [Primary Care Provider] - 07/13/18 10:00 am (2) Anemia Qualifiers: Anemia type: unspecified type Qualified Code(s): D64.9 - Anemia, unspecified (3) Pneumonia Qualifiers: Pneumonia type: due to unspecified organism Laterality: right Lung location: lower lobe of lung Qualified Code(s): J18.1 - Lobar pneumonia, unspecified organism (4) Atrial fibrillation Qualifiers: Atrial fibrillation type: permanent Qualified Code(s): I48.2 - Chronic atrial fibrillation (5) Hematuria Qualifiers: Hematuria type: gross Qualified Code(s): R31.0 - Gross hematuria
[2018-07-04] MEDS: Cholecalciferol (D-3) 1,000 UNIT TABLET PO SCH (08:48)
[2018-07-04] MEDS: Aspirin Enteric Coated 325 MG Tablet PO SCH (08:48)
[2018-07-04] MEDS: Oseltamivir Phosphate 30 MG CAPSULE PO SCH (08:48)
[2018-07-04] MEDS: INTEGRA PLUS PO SCH (08:50)
[2018-07-04] MEDS: (Lutein 20 MG) PO SCH (08:50)
[2018-07-04] MEDS: Azithromycin 250 MG in D5% in Water 250 ML IVPB SCH (09:00)
[2018-07-04] MEDS: Potassium Chloride Elixir 20 MEQ/15 ML UDC PO SCH ×2 (09:03→12:43)
--- NOTE | 2018-07-04 09:56 | Urology Progress Note ---
<Rhea Dwyer N - Last Filed: 07/04/18 09:54> Date of Encounter: 07/04/18 Time of Encounter: 09:15 - Assessment and Plan (1) IQRA (acute kidney injury) Current Visit: Yes Status: Acute (2) Bladder cancer Current Visit: Yes Status: Acute Assessment and plan: Patient is an 87-year-old male who presents with a history of bladder cancer. Discussed hand irrigation at bedside due to increased bleeding. Holding anticoagulation if possible may improve bleeding. Dr. Brizuela we will reevaluate patient later today. Qualifiers: Bladder location: overlapping sites Qualified Code(s): C67.8 - Malignant neoplasm of overlapping sites of bladder (3) Hematuria Current Visit: Yes Status: Acute Qualifiers: Hematuria type: gross Qualified Code(s): R31.0 - Gross hematuria (4) Chronic suprapubic catheter Current Visit: Yes Status: Acute (5) Prostate cancer metastatic to bone Current Visit: No Status: Chronic (6) Urinary tract infection Current Visit: Yes Status: Resolved Qualifiers: Urinary tract infection type: acute cystitis Hematuria presence: with hematuria Qualified Code(s): N30.01 - Acute cystitis with hematuria (7) Hydronephrosis due to obstruction of ureter Current Visit: Yes Status: Acute Progress Note Narrative: Patient seen and examined sitting upright in chair in no apparent distress. [place] catheter is indwelling and draining opaque fruit punch urine into bedside bag. Left nephrostomy tube is indwelling and draining transparent pink lemonade into bag. Patient denies fever, chills, flank pain. Objective Initial Vital Signs Temp Pulse Resp BP Pulse Ox 101.1 F H 66 18 148/58 82 06/30/18 17:04 06/30/18 17:04 06/30/18 17:04 06/30/18 17:04 06/30/18 17:04 - General physical appearance Present: no distress, no pain - Respiratory Present: normal expansion, normal respiratory effort - Genitourinary Urine Appearance: Present: Sediment, Hematuria - Integumentary Present: no rash, no abnormal pigmentation - Musculoskeletal Present: normal posture - Psychiatric Present: oriented to time, oriented to person, oriented to place, speech is normal, memory intact - Labs 07/04/18 03:15 07/04/18 03:15 Diabetes panel 07/03/18 07/04/18 Range/Units 11:48 03:15 Sodium 140 141 (136-145) mEq/L Potassium 3.6 3.2 L (3.5-5.1) mEq/L Chloride 102 103 (98-107) mEq/L Carbon Dioxide 28 27 (23-29) mEq/L BUN 34 H 34 H (8-23) mg/dL Creatinine 1.91 H 1.92 H (0.70-1.30) mg/dL Glucose 104 95 (70-105) mg/dL Calcium 8.9 8.5 L (8.6-10.3) mg/dL Calcium panel 07/03/18 07/04/18 Range/Units 11:48 03:15 Calcium 8.9 8.5 L (8.6-10.3) mg/dL Pituitary panel 07/03/18 07/04/18 Range/Units 11:48 03:15 Sodium 140 141 (136-145) mEq/L Potassium 3.6 3.2 L (3.5-5.1) mEq/L Chloride 102 103 (98-107) mEq/L Carbon Dioxide 28 27 (23-29) mEq/L BUN 34 H 34 H (8-23) mg/dL Creatinine 1.91 H 1.92 H (0.70-1.30) mg/dL Glucose 104 95 (70-105) mg/dL Calcium 8.9 8.5 L (8.6-10.3) mg/dL Adrenal panel 07/03/18 07/04/18 Range/Units 11:48 03:15 Sodium 140 141 (136-145) mEq/L Potassium 3.6 3.2 L (3.5-5.1) mEq/L Chloride 102 103 (98-107) mEq/L Carbon Dioxide 28 27 (23-29) mEq/L BUN 34 H 34 H (8-23) mg/dL Creatinine 1.91 H 1.92 H (0.70-1.30) mg/dL Glucose 104 95 (70-105) mg/dL Calcium 8.9 8.5 L (8.6-10.3) mg/dL Consult Discharge Plan - Plan Referrals: José Grace DO [Primary Care Provider] - 07/13/18 10:00 am <Kingston Pandya - Last Filed: 07/04/18 10:05> Date of Encounter: 07/04/18 - Assessment and Plan (1) Bladder cancer Current Visit: Yes Status: Acute Assessment and plan: Patient was seen and examined independently. Agree with the plan as written by Rhea Dwyer. Plan is to continue to hold Coumadin but allow aspirin. Patient's urine appears to have developed more hematuria today compared to yesterday. It is draining adequately. Left nephrostomy tube draining clear urine. Patient serum creatinine unchanged from yesterday. We will continue to encourage fluids today. If patient's hematuria remains the same or worsens may consider right nephrostomy tube placement tomorrow or Monday. Qualifiers: Bladder location: overlapping sites Qualified Code(s): C67.8 - Malignant neoplasm of overlapping sites of bladder Objective Initial Vital Signs Temp Pulse Resp BP Pulse Ox 101.1 F H 66 18 148/58 82 06/30/18 17:04 06/30/18 17:04 06/30/18 17:04 06/30/18 17:04 06/30/18 17:04 - Labs 07/04/18 03:15 07/04/18 03:15 Diabetes panel 07/03/18 07/04/18 Range/Units 11:48 03:15 Sodium 140 141 (136-145) mEq/L Potassium 3.6 3.2 L (3.5-5.1) mEq/L Chloride 102 103 (98-107) mEq/L Carbon Dioxide 28 27 (23-29) mEq/L BUN 34 H 34 H (8-23) mg/dL Creatinine 1.91 H 1.92 H (0.70-1.30) mg/dL Glucose 104 95 (70-105) mg/dL Calcium 8.9 8.5 L (8.6-10.3) mg/dL Calcium panel 07/03/18 07/04/18 Range/Units 11:48 03:15 Calcium 8.9 8.5 L (8.6-10.3) mg/dL Pituitary panel 07/03/18 07/04/18 Range/Units 11:48 03:15 Sodium 140 141 (136-145) mEq/L Potassium 3.6 3.2 L (3.5-5.1) mEq/L Chloride 102 103 (98-107) mEq/L Carbon Dioxide 28 27 (23-29) mEq/L BUN 34 H 34 H (8-23) mg/dL Creatinine 1.91 H 1.92 H (0.70-1.30) mg/dL Glucose 104 95 (70-105) mg/dL Calcium 8.9 8.5 L (8.6-10.3) mg/dL Adrenal panel 07/03/18 07/04/18 Range/Units 11:48 03:15 Sodium 140 141 (136-145) mEq/L Potassium 3.6 3.2 L (3.5-5.1) mEq/L Chloride 102 103 (98-107) mEq/L Carbon Dioxide 28 27 (23-29) mEq/L BUN 34 H 34 H (8-23) mg/dL Creatinine 1.91 H 1.92 H (0.70-1.30) mg/dL Glucose 104 95 (70-105) mg/dL Calcium 8.9 8.5 L (8.6-10.3) mg/dL
[2018-07-04] MEDS: Piperacillin/Tazobactam 3.375 GM in 0.9 % Sodium Chloride Mini Bag 100 ML IVPB SCH ×2 (10:52→17:54)
[2018-07-05] MEDS: Piperacillin/Tazobactam 3.375 GM in 0.9 % Sodium Chloride Mini Bag 100 ML IVPB SCH ×3 (00:05→16:39)
[2018-07-05] MEDS: Ipratropium/Albuterol Neb 3 ML IH SCH ×3 (04:07→16:47)
--- NOTE | 2018-07-05 07:37 | Urology Progress Note ---
Date of Encounter: 07/05/18 Time of Encounter: 07:35 - Assessment and Plan (1) Bladder cancer Current Visit: Yes Status: Acute Assessment and plan: At this time, patients urine and catheter appears stable. Labs stable. From urology standpoint I do not feel that any further intervention is needed at this time. Patient should keep follow-up with [facility] for scheduled surgery. We will continue to follow along while patient in hospital. Qualifiers: Bladder location: overlapping sites Qualified Code(s): C67.8 - Malignant neoplasm of overlapping sites of bladder Progress Note Narrative: Patient seen this morning. Patient states that he is having some difficulty with night and day. He is having some abdominal discomfort. Objective Initial Vital Signs Temp Pulse Resp BP Pulse Ox 101.1 F H 66 18 148/58 82 06/30/18 17:04 06/30/18 17:04 06/30/18 17:04 06/30/18 17:04 06/30/18 17:04 - General physical appearance Present: well developed, well nourished - Abdomen Present: soft. Absent: tender - Genitourinary Present: other (Catheter with slightly blood-tinged urine. Left nephrostomy tube draining clear urine) - Labs 07/04/18 03:15 07/04/18 03:15 Consult Discharge Plan - Plan Referrals: José Grace DO [Primary Care Provider] - 07/13/18 10:00 am
--- NOTE | 2018-07-05 07:58 | Internal Med Progress Note ---
Hospitalist Progress Note - Encounter Date of Encounter: 07/05/18 - Exam Vitals: Temp Pulse Resp BP Pulse Ox 97.5 F L 61 17 164/64 92 07/05/18 07:39 07/05/18 07:39 07/05/18 07:39 07/05/18 07:39 07/05/18 07:39 Exam: General: Patient is somnolent but easily awakes. Oriented 3. ENT: Mucous membranes moist Respiratory: Good respiratory effort. Normal breath sounds. No wheezing or crackles. Cardiovascular: Regular rate and rhythm. s1 and s2 normal No clicks, rubs, gallops, or murmurs. No pedal edema Abdomen: Abdomen is soft, nontender, left-sided nephrostomy tube in place. Bowel sounds are present Musculoskeletal: Spontaneously moving all extremities Skin: warm, dry, intact. Neuro: Alert oriented x 3 normal cranial nerves, no focal deficits - Assessment and Plan (1) Acute respiratory failure with hypoxemia Current Visit: Yes Status: Acute Assessment and Plan: Likely secondary to pneumonia and influenza. Continue antibiotics and supportive care (2) Anemia Current Visit: Yes Status: Chronic Assessment and Plan: Acute on chronic anemia. Likely secondary to hematuria. Stable. Continue to monitor (3) Pneumonia Current Visit: Yes Status: Acute Assessment and Plan: Continue azithromycin and Zosyn. Follow blood cultures (4) Atrial fibrillation Current Visit: Yes Status: Chronic Assessment and Plan: rate controlled. s/p left nephrostomy tube placement with hematuria. On aspirin for anticoagulation due to age and multiple comorbidities (5) Hematuria Current Visit: Yes Status: Acute Assessment and Plan: With history of prostate cancer and bladder cancer. Urology following (6) IQRA (acute kidney injury) Current Visit: Yes Status: Acute Assessment and Plan: Likely secondary to obstruction. Patient is s/p nephrostomy tube placement Monitor creatinine. (7) Influenza A Current Visit: Yes Status: Acute Assessment and Plan: On Tamiflu. Continue supportive management (8) DVT prophylaxis Current Visit: Yes Status: Acute Assessment and Plan: Hold coumadin. Continue SCDS - Time Spent with Patient Total time spent is greater than 50% in coordination of care (as documented) at patient's floor/unit and/or counseling patient: Internal Medicine: Result - Labs CBC & Chem 7: 07/04/18 03:15 07/04/18 03:15 - ABG Interpretation ABG results: PT/INR, D-dimer PT 15.6 Seconds (9.4-12.1) H 07/04/18 03:15 Consult Discharge Plan - Plan Referrals: José Grace DO [Primary Care Provider] - 07/13/18 10:00 am __ (2) Anemia Qualifiers: Anemia type: unspecified type Qualified Code(s): D64.9 - Anemia, unspecified (3) Pneumonia Qualifiers: Pneumonia type: due to unspecified organism Laterality: right Lung location: lower lobe of lung Qualified Code(s): J18.1 - Lobar pneumonia, unspecified organism (4) Atrial fibrillation Qualifiers: Atrial fibrillation type: permanent Qualified Code(s): I48.2 - Chronic atrial fibrillation (5) Hematuria Qualifiers: Hematuria type: gross Qualified Code(s): R31.0 - Gross hematuria
[2018-07-05 08:37] LABS: Basophils % 0.6 %; Eosinophils # 0.3 K/mcL (0.0-0.6); Eosinophils % 3.9 %; Hematocrit 30.3 % (37.5-50.1); Hemoglobin 9.9 g/dL (12.9-16.9); Immature Granulocytes % 0.5 % (0-4); Lymphocytes # 1.3 K/mcL (0.6-4.6); Lymphocytes % 19.3 %; Mean Corpuscular HGB Conc 32.7 g/dL (31.6-35.5); Mean Corpuscular Hemoglobin 28.9 pg (28.0-33.3); Mean Corpuscular Volume 88.6 fL (83.0-100.0); Mean Platelet Volume 8.6 fL (9.4-12.4); Monocytes # 0.6 K/mcL (0.0-1.3); Monocytes % 8.4 %; Neutrophils # 4.5 K/mcL (1.6-8.9); Platelet Count 226 K/mcL (140-400); Red Blood Count 3.42 M/mcL (4.19-5.50); Red Cell Distribution Width 14.8 % (11.5-14.5); Segmented Neutrophils % 67.3 %
[2018-07-05] MEDS: Aspirin Enteric Coated 325 MG Tablet PO SCH (08:49)
[2018-07-05] MEDS: Potassium Chloride Elixir 20 MEQ/15 ML UDC PO SCH ×2 (08:49→12:08)
[2018-07-05] MEDS: Cholecalciferol (D-3) 1,000 UNIT TABLET PO SCH (08:49)
[2018-07-05 08:55] LABS: BUN/Creatinine Ratio 16 (6-26); Blood Urea Nitrogen 21 mg/dL (8-23); Calcium 9.3 mg/dL (8.6-10.3); Carbon Dioxide 30 mEq/L (23-29); Chloride 105 mEq/L (98-107); Glucose 112 mg/dL (70-105); Osmolality,Calculated 292 (280-300); Potassium 3.6 mEq/L (3.5-5.1); Sodium 139 mEq/L (136-145); eGFR For Non-African Americans 50 (> 60)
[2018-07-05] MEDS ORDERED: Azithromycin 250 MG TABLET PO SCH ×2 (09:00)
[2018-07-05 11:42] VITALS: BP 150/71
--- NOTE | 2018-07-05 14:08 | Palliative - Consult Note ---
<Stephen Monroe R - Last Filed: 07/05/18 14:32> Date of Encounter: 07/05/18 Time of Encounter: 14:00 - Assessment and Plan (1) Goals of care, counseling/discussion Current Visit: Yes Status: Acute Assessment and plan: Discussed goal of care, MPOA, and code status with the patient Patient has a very good understanding of his cancer and all that has been done so far - I am concerned that he may not have full insight to the severity and prognosis His wishes are to continue to pursue treatment that may be of benefit to him He is from home with his , but it appears that he may need assistance in the future when he eventually returns home He has a living will. MPOA are his son, Justin Hodgson, and daughter, Adriana Mancia Discussing code status with the patient and at this time he wishes to remain Full Code - He did state that he will continue to discuss this with his family (2) Prostate cancer metastatic to bone Current Visit: No Status: Chronic Assessment and plan: Management per oncology and urology Palliative-CN HPI - Data of Consult Patient: new to practice Consult date: 07/05/18 Requesting Physician: Yovany Dominguez MD Primary Care Provider: José Grace DO - Consult Narrative Palliative Care/Comfort Measures: Palliative care Reason for consult: Goals of Care Discussion, prostate cancer History of present illness: Mr. Hodgson is a 87 year old male with PMH of CHF, pulmonary hypertension, and metastatic prostate and bladder cancer admitted to the hospital with influenza and hematuria. He has a suprapubic catheter and follows with Oncology and Urology. He has been through both radiation and chemotherapy for his cancer. He is also being evaluated by Urology at [facility] for possible surgery. He is recovering well from his influenza. He is now s/p left nephrostomy tube placement as well. Palliative is consulted for goals of care discussion. He has a very good understanding of his cancer and the treatments that he has received and the possible upcoming treatments as well. He reports mild discomfort with his nephrostomy tube, but otherwise is not in any pain. He denies nausea, vomiting, or anxiety. Mr. Hodgson lives at home with his , Henny. He was very active until about 3 years ago, but now stays primarily at home. Prior to this hospitalizati on he was able to get up and move about the house. He did require some assistance with activities, mostly related to his worsening sight with macular degeneration. He has a living will and his MPOA are his son, Justin Hodgson, and daughter, Adriana Mancia. His goal is to continue to improve from his current influenza and to see what can be done with surgery about his bladder cancer. CC: Yovany Dominguez MD - Time Spent with Patient Time: Total time spent is greater than 50% in coordination of care (as documented) at patient's floor/unit and/or counseling patient: Past Med Surg Social Fam HX - Past Medical History Medical history: atrial fibrillation, cancer (prostate and bladder), hype rtension Additional medical history: postate CA and bladder CA Psychiatric history: no psych history - Past Surgical History Surgical History: prostatectomy, pacemaker - Social History Smoking Status: Never smoker Smokeless Tobacco Status: No Alcohol use: none Drug use: none - Family History Mother Family Member Ethnicity: Non- Living Status: Hx Family Neurologic Disorders: Yes (Alzheimer's disease) Father Family Member Ethnicity: Non- Living Status: Hx Family Cardiac Disorders: Yes ([place], Afib, HTN, HLD) Brother Family Member Ethnicity: Non- Living Status: Still Living Hx Family HEENT Disorders: Yes (Macular degeneration) Grandfather Family Member Ethnicity: Non- Living Status: Hx Family Cardiac Disorders: Yes ([place]) Medications and Allergies Quinapril HCl [Accupril] 40 mg PO BID 12/08/14 [History] Simvastatin [Zocor] 20 mg PO HS 12/08/14 [History] Cholecalciferol (Vitamin D3) [Vitamin D3] 5,000 unit PO DAILY 02/12/15 [History] Acetaminophen [Pain Relief] 1,000 mg PO BID PRN 03/22/17 [History] Docusate Sodium [Stool Softener] 100 mg PO DAILY 06/26/17 [History] Iron Fum,Ps/Folic/Bcomp,C No.9 [Integra Plus Capsule] 1 cap PO DAILY 04/23/18 [History] Amlodipine Besylate 10 mg PO DAILY 05/21/18 [History] Calcium Polycarbophil [Fibercon] 625 mg PO DAILY 05/21/18 [History] Carvedilol 12.5 mg PO BID 05/21/18 [History] Furosemide [Lasix] 20 mg PO DAILY 05/21/18 [History] Lutein [Natural Lutein] 20 mg PO DAILY 05/21/18 [History] Potassium Chloride [K-Tab ER] 10 meq PO QID 05/21/18 [History] Vitamin E 1,000 unit PO DAILY 05/21/18 [History] Aspirin Enteric Coated [Aspirin EC] 325 mg PO DAILY #60 tablet. 07/05/18 [Rx] Allergy/AdvReac Type Severity Reaction Status Date / Time magnesium Allergy Unknown See Verified 05/21/18 14:32 Comments Sulfa (Sulfonamide AdvReac Nausea Verified 05/21/18 14:32 Antibiotics) All systems: reviewed and no additional remarkable complaints except as stated Palliative Care-Exam - Constitutional Vitals: Temp Pulse Resp BP Pulse Ox 97.7 F 62 18 150/71 92 07/05/18 11:41 07/05/18 11:41 07/05/18 11:41 07/05/18 11:41 07/05/18 11:41 General appearance: Present: average body habitus, cooperative, no acute dist ress - Head Head Exam: Present: atraumatic, normal inspection - Eye Eye exam: Present: EOMI, normal appearance, sclera anicteric - ENT ENT exam: Present: mucous membranes dry - Neck Neck exam: Present: full ROM - Respiratory Respiratory exam: Present: CTAB. Absent: rales, respiratory distress, rhonchi - Cardiovascular Cardiovascular exam: Present: RRR, +S1, +S2 - GI/Abdominal Exam GI/Abdominal exam: Present: soft. Absent: distended, guarding, tenderness - Catheter Type: Suprapubic Additional comments: suprapubic site and nephrostomy sites without erythema, swelling, or drainage. Noted hematuria in both bags - Extremities Exam Extremities exam: Present: normal inspection. Absent: pedal edema - Neurological Exam Neurological exam: Present: alert, oriented X3, no focal deficits - Psychiatric Psychiatric exam: Present: normal affect, normal mood Internal Medicine - CN: Reslt - Labs CBC & Chem 7: 07/05/18 08:24 07/05/18 08:24 Labs: Short CBC 07/05/18 Range/Units 08:24 WBC 6.6 (4.3-11.1) K/mcL Hgb 9.9 L (12.9-16.9) g/dL Hct 30.3 L (37.5-50.1) % Plt Count 226 (140-400) K/mcL Neutrophils # 4.5 (1.6-8.9) K/mcL BMP 07/05/18 08:24 Sodium 139 Potassium 3.6 Chloride 105 Carbon Dioxide 30 H BUN 21 Creatinine 1.35 H Glucose 112 H Calcium 9.3 - ABG Interpretation ABG results: PT/INR, D-dimer PT 15.6 Seconds (9.4-12.1) H 07/04/18 03:15 Consult Discharge Plan - Plan Instructions: Nephrostomy Tube Care (DC) Referrals: José Grace DO [Primary Care Provider] - 07/13/18 10:00 am Prescriptions: Aspirin Enteric Coated [Aspirin EC] 325 mg PO DAILY #60 tablet. Palliative Quality Palliative Quality: Screen for Code Status: Yes, Screen for Goals of Care: Yes, Screen for Pain: Yes, If Pain Regimen Started, Initiate Bowel Regimen: NA, Screen for Nausea/Vomitting: Yes Code Status: 06/30/18 22:03 Resuscitation Status: Active [RES] Routine Comment: Resuscitation Status: Full Code Palliative Scale - Palliative Performance Scale How ambulatory is this patient?: Mainly sit / lie What is patient's level of activity and evidence of disease?: Unable to do any work, Extensive disease How much self-care assistance does patient require?: Considerable assistance required How much oral intake does the patient have?: Normal or reduced What is this patient's level of consciousness?: Full Palliative Performance Score: 50 % <Anila Camacho - Last Filed: 07/05/18 16:06> Date of Encounter: 07/05/18 Palliative-CN HPI - Data of Consult Requesting Physician: Yovany Dominguez MD Primary Care Provider: José Grace DO - Consult Narrative History of present illness: Mr. Hodgson is a 87 year old male CC: Yovany Dominguez MD - Time Spent with Patient Time: Total time spent is greater than 50% in coordination of care (as documented) at patient's floor/unit and/or counseling patient: Palliative Care-Exam - Constitutional Vitals: Temp Pulse Resp BP Pulse Ox 97.7 F 62 18 150/71 92 07/05/18 11:41 07/05/18 11:41 07/05/18 11:41 07/05/18 11:41 07/05/18 11:41 Internal Medicine - CN: Reslt - Labs CBC & Chem 7: 07/05/18 08:24 07/05/18 08:24 Labs: Short CBC 07/05/18 Range/Units 08:24 WBC 6.6 (4.3-11.1) K/mcL Hgb 9.9 L (12.9-16.9) g/dL Hct 30.3 L (37.5-50.1) % Plt Count 226 (140-400) K/mcL Neutrophils # 4.5 (1.6-8.9) K/mcL BMP 07/05/18 08:24 Sodium 139 Potassium 3.6 Chloride 105 Carbon Dioxide 30 H BUN 21 Creatinine 1.35 H Glucose 112 H Calcium 9.3 - ABG Interpretation ABG results: PT/INR, D-dimer PT 15.6 Seconds (9.4-12.1) H 07/04/18 03:15 - Attending Attestation I performed a history and physical examination of the patient and discussed his management with the resident. I reviewed the residents note and agree with the documented findings and plan of care. Patient appears to have a good understanding of his disease and treatment plan, but not enough insight to the prognosis and the goals of treatment. He has a living will and POA in place. Pt lives with , is not in good health either and is admitted as well. Pt still had a good functional status prior to current acute illness. Discussed code status, patient at this time wants to remains full code, but is open to further discussion with family. Attempted to reach pt's son Justin to the number provided in the chart, unable to reach. Palliative care will continue to follow if pt remains admitted. Palliative Quality Code Status: 06/30/18 22:03 Resuscitation Status: Active [RES] Routine Comment: Resuscitation Status: Full Code
--- NOTE | 2018-07-05 15:05 | Physician Discharge Referral ---
- Diagnosis (1) Acute respiratory failure with hypoxemia Priority: Primary Status: Acute (2) Anemia Priority: Primary Status: Chronic (3) Pneumonia Priority: Primary Status: Acute (4) Atrial fibrillation Priority: Primary Status: Chronic (5) Hematuria Priority: Primary Status: Acute (6) IQRA (acute kidney injury) Priority: Primary Status: Acute (7) Influenza A Priority: Primary Status: Acute (8) DVT prophylaxis Priority: Primary Status: Acute - Transfer Medications Prescriptions: Aspirin Enteric Coated [Aspirin EC] 325 mg PO DAILY #60 tablet. Home Medications: Quinapril HCl [Accupril] 40 mg PO BID 12/08/14 [History] Simvastatin [Zocor] 20 mg PO HS 12/08/14 [History] Cholecalciferol (Vitamin D3) [Vitamin D3] 5,000 unit PO DAILY 02/12/15 [History] Acetaminophen [Pain Relief] 1,000 mg PO BID PRN 03/22/17 [History] Docusate Sodium [Stool Softener] 100 mg PO DAILY 06/26/17 [History] Iron Fum,Ps/Folic/Bcomp,C No.9 [Integra Plus Capsule] 1 cap PO DAILY 04/23/18 [History] Amlodipine Besylate 10 mg PO DAILY 05/21/18 [History] Calcium Polycarbophil [Fibercon] 625 mg PO DAILY 05/21/18 [History] Carvedilol 12.5 mg PO BID 05/21/18 [History] Furosemide [Lasix] 20 mg PO DAILY 05/21/18 [History] Lutein [Natural Lutein] 20 mg PO DAILY 05/21/18 [History] Potassium Chloride [K-Tab ER] 10 meq PO QID 05/21/18 [History] Vitamin E 1,000 unit PO DAILY 05/21/18 [History] Aspirin Enteric Coated [Aspirin EC] 325 mg PO DAILY #60 tablet. 07/05/18 [Rx] Allergies/Adverse Reactions: Allergy/AdvReac Type Severity Reaction Status Date / Time magnesium Allergy Unknown See Verified 05/21/18 14:32 Comments Sulfa (Sulfonamide AdvReac Nausea Verified 05/21/18 14:32 Antibiotics) - Respiratory Orders Smoking Cessation: Smoking cessation has been advised. For more information, call the [place] Tobacco Quit Line at 5-827-LPPQ-NOW. - Mobility Orders Ambulate - Diet Orders Cardiac CERTIFICATION: I certify that the transfer of the above named patient to an Extended Care Facility is necessary for the continuing treatment of the diagnosis listed. The above information is true and accurate reflection of patient's current condition. Confidential - Redisclosure prohibited without a patient's written consent.
--- NOTE | 2018-07-05 15:05 | Discharge Summary ---
Orders not resulted at time of discharge: Pending orders 06/30/18 18:50 Culture,Blood [BC] Stat 07/02/18 08:17 PLASMA [BBK] Stat Red Blood Cells [BBK] Stat Type and Screen [BBK] Stat 07/06/18 04:00 Basic Metabolic Panel AM 0400 CBC [Complete Blood Count] [HEME] AM 0400 Magnesium AM 0400 Phosphorous AM 0400 07/07/18 04:00 Basic Metabolic Panel AM 0400 CBC [Complete Blood Count] [HEME] AM 0400 Magnesium AM 0400 Phosphorous AM 0400 07/08/18 04:00 Basic Metabolic Panel AM 0400 CBC [Complete Blood Count] [HEME] AM 0400 Magnesium AM 0400 Phosphorous AM 0400 07/09/18 04:00 Basic Metabolic Panel AM 0400 CBC [Complete Blood Count] [HEME] AM 0400 Magnesium AM 0400 Phosphorous AM 0400 07/10/18 04:00 Basic Metabolic Panel AM 0400 CBC [Complete Blood Count] [HEME] AM 0400 Magnesium AM 0400 Phosphorous AM 0400 07/11/18 04:00 Basic Metabolic Panel AM 0400 CBC [Complete Blood Count] [HEME] AM 0400 Magnesium AM 0400 Phosphorous AM 0400 Date of Encounter: 07/05/18 Time of Encounter: 15:00 - Discharge Diagnosis (1) Acute respiratory failure with hypoxemia Priority: Primary Status: Acute Assessment and Plan: 87 year old male who presents today with complaints of fever, shakes, chills, cough, shortness of breath, and weakness. Symptoms started abruptly yesterday and have progressively worsened. He has a history of chronic diastolic CHF and pulmonary hypertension. He wears CPAP at night for sleep apnea. He was feeling normal and well until the last 24 hours or so with above symptoms. He denies any ill contacts but he was at a birthday democr[employer] last week and might have been exposed to an unknown ill person. He also complains of some hematuria. He has a suprapubic catheter and has catheter changed every month. He was recently diagnosed with bladder cancer. He was assessed with acute hypoxic repsiratory failure likely secondary to pneumonia and influenza and left sided hydronephrosis due to bladder cancer. He underwent a left sided nephrostomy tube placement by urology and tolerated procedure well. Due to hematuria, his coumadin for atrial fibrillation has been discontinued and he will be on aspirin per cardio recs. HE completed a course of antibiotics for pneumonia and improved. He is to follow up at [facility] outpatient for bladder cancer surgery. 35 minutes was spent discharging this patient (2) Anemia Priority: Primary Status: Chronic Qualifiers: Anemia type: unspecified type Qualified Code(s): D64.9 - Anemia, un specified (3) Pneumonia Priority: Primary Status: Acute Qualifiers: Pneumonia type: due to unspecified organism Laterality: right Lung location: lower lobe of lung Qualified Code(s): J18.1 - Lobar pneumonia, unspecified organism (4) Atrial fibrillation Priority: Primary Status: Chronic Qualifiers: Atrial fibrillation type: permanent Qualified Code(s): I48.2 - Chronic atrial fibrillation (5) Hematuria Priority: Primary Status: Acute Qualifiers: Hematuria type: gross Qualified Code(s): R31.0 - Gross hematuria (6) IQRA (acute kidney injury) Priority: Primary Status: Acute (7) Influenza A Priority: Primary Status: Acute (8) DVT prophylaxis Priority: Primary Status: Acute Hospital course: Mr. Hodgson is a 87 year old male - Time Spent with Patient Total time spent providing and/or coordinating discharge services: - Discharge Medications Prescriptions: New Aspirin Enteric Coated [Aspirin EC] 325 mg PO DAILY #60 tablet. Continue Quinapril HCl [Accupril] 40 mg PO BID Simvastatin [Zocor] 20 mg PO HS Cholecalciferol (Vitamin D3) [Vitamin D3] 5,000 unit PO DAILY Acetaminophen [Pain Relief] 1,000 mg PO BID PRN PRN Reason: Pain Docusate Sodium [Stool Softener] 100 mg PO DAILY Iron Fum,Ps/Folic/Bcomp,C No.9 [Integra Plus Capsule] 1 cap PO DAILY Amlodipine Besylate 10 mg PO DAILY Calcium Polycarbophil [Fibercon] 625 mg PO DAILY Carvedilol 12.5 mg PO BID Furosemide [Lasix] 20 mg PO DAILY Potassium Chloride [K-Tab ER] 10 meq PO QID Vitamin E 1,000 unit PO DAILY Lutein [Natural Lutein] 20 mg PO DAILY Discontinued Warfarin [Coumadin] 3 mg PO MOFR Warfarin [Coumadin] 1.5 mg PO SUTUWETHSA Home Medications: Quinapril HCl [Accupril] 40 mg PO BID 12/08/14 [History] Simvastatin [Zocor] 20 mg PO HS 12/08/14 [History] Cholecalciferol (Vitamin D3) [Vitamin D3] 5,000 unit PO DAILY 02/12/15 [History] Acetaminophen [Pain Relief] 1,000 mg PO BID PRN 03/22/17 [History] Docusate Sodium [Stool Softener] 100 mg PO DAILY 06/26/17 [History] Iron Fum,Ps/Folic/Bcomp,C No.9 [Integra Plus Capsule] 1 cap PO DAILY 04/23/18 [History] Amlodipine Besylate 10 mg PO DAILY 05/21/18 [History] Calcium Polycarbophil [Fibercon] 625 mg PO DAILY 05/21/18 [History] Carvedilol 12.5 mg PO BID 05/21/18 [History] Furosemide [Lasix] 20 mg PO DAILY 05/21/18 [History] Lutein [Natural Lutein] 20 mg PO DAILY 05/21/18 [History] Potassium Chloride [K-Tab ER] 10 meq PO QID 05/21/18 [History] Vitamin E 1,000 unit PO DAILY 05/21/18 [History] Aspirin Enteric Coated [Aspirin EC] 325 mg PO DAILY #60 tablet. 07/05/18 [Rx] Allergies/Adverse Reactions: Allergy/AdvReac Type Severity Reaction Status Date / Time magnesium Allergy Unknown See Verified 05/21/18 14:32 Comments Sulfa (Sulfonamide AdvReac Nausea Verified 05/21/18 14:32 Antibiotics) Date of admission: 06/30/18 22:03 Primary care physician: José Grace DO Consults: 06/30/18 22:03 Consult to Urology [CONS] Routine Consulting Provider: Urology Julieth Reason for Consult: hematuria; prostate CA; right groin pain; bladder CA Call Completed: No 07/02/18 08:00 Consult to Nurse Navigator [CONS] Routine Comment: PNEUMONIA 07/02/18 08:53 Consult to Interventional Radiology [CONS] Routine Consulting Provider: Radiology Interventional Cols Reason for Consult: Evaluation for left nephrostomy tube placement Time Notified: 08:54 Call Completed: No 07/03/18 12:06 Consult to Physical Therapy [CONS] Routine Comment: Evaluate, develop and implement POC Reason for Consult: weakness Does patient have active BEDREST order?: No Is patient medically & hemodynamically stable?: Yes Patient assessed for mobility or mobilized this visit?: No OT [Consult to Occupational Therapy] [CONS] Routine Comment: Evaluate, develop and implement POC Reason for Consult: weakness Does patient have active BEDREST order?: No Is patient medically & hemodynamically stable?: Yes Patient assessed for mobility or mobilized this visit?: No 07/04/18 11:08 Consult to Chemistry Physics Teacher [CONS] Routine Reason for SW Consult: SHORT TERM REHAB PER THERAPY 07/05/18 09:06 Consult to Palliative Care [CONS] Routine Comment: Consulting Provider: Palliative Care Julieth Reason for Consult: prostate, bladder cancer. Dr. Stewart to place call Call Completed: No - Constitutional Vitals: Temp Pulse Resp BP Pulse Ox 97.7 F 62 18 150/71 92 07/05/18 11:41 07/05/18 11:41 07/05/18 11:41 07/05/18 11:41 07/05/18 11:41 General appearance: Present: cooperative, mild distress, A&O X 3, pleasant, answers questions appropriately Exam: General: Patient is somnolent but easily awakes. Oriented 3. ENT: Mucous membranes moist Respiratory: Good respiratory effort. Normal breath sounds. No wheezing or crackles. Cardiovascular: Regular rate and rhythm. s1 and s2 normal No clicks, rubs, gallops, or murmurs. No pedal edema Abdomen: Abdomen is soft, nontender, left-sided nephrostomy tube in place. Bowel sounds are present Musculoskeletal: Spontaneously moving all extremities Skin: warm, dry, intact. Neuro: Alert oriented x 3 normal cranial nerves, no focal deficits - Patient Status Disposition: Transfer SNF Condition: Good - Discharge Instructions Instructions: Nephrostomy Tube Care (DC) Follow Up With: José Grace DO [Primary Care Provider] - 07/13/18 10:00 am
== END 2018-07-05 16:50 | DRG 193 ==
LOC: 3BNU 17:01 → EMEROOARM 17:01 → 3BNU 20:24 → SUATTDRO 22:03 → 2NNU 07-02 12:27 → 2ANU 07-04 13:32
PROVIDERS: ADMIT Internal Medicine; ATTEND Internal Medicine